=== PATIENT | male | born 1935 | race Caucasian/White ===

== ENCOUNTER 2017-05-02 09:57 | Outpatient (CLI) | payer MEDICARE, OTHER ==
--- NOTE | ~2017-05-02 | HEMODYNAMI ---
PATIENT:ROSENDO MESSINA MEDICAL RECORD: [id number] : 35 LOCATION:D.CAT ADMISSION DATE: 05/02/17 Generatedon:05/02/201712:17 Patient name: ROSENDO MESSINA Patient #: [id number] SSN: DO B: 1935 Date of study: 05/02/2017 Page: Of Hemodynamic Procedure Report Patient Data Patient Demographics Procedure consent was obtained First Name: ROSENDO Gender: Male Last Name: SIDDHARTH : 1935 Middle Initial: D Age: 82 year(s) Patient #: [id number] Race: Unknown Additional ID: [id number] Contact details [address]: [address] [place] [address] State: [place] City: [place] Zip code: [address] Past Medical History Allergies: No known allergies Admission Admission Data Admission Date: 05/02/2017 Admission Time: 9:57 Admit Source: Other Lab Results Lab Result Date: 05/02/2017 Lab Result Time: 10:50 Biochemistry Name Units Result Min Max BUN mg/dl 8 --(*---)-- 7 18 Creatinine mg/dl 1 --(--*-)-- 0.6 1.3 CBC Name Units Result Min Max Hematocrit % 41 -*(----)-- 42 54 Hemoglobin g/dl 14 --(*---)-- 13.5 17.5 Procedure Procedure Types Cath Procedure Diagnostic Procedure LHC C w/Coronaries w/Grafts Miscellaneous Procedures Moderate Sedation up to 15 minutes Procedure Description Procedure Date Procedure Date: 05/02/2017 Procedure Start Time: 12:04 Procedure End Time: 12:14 Procedure Staff Name Function Tyrone Alex MD Performing Physician Zaid Calles RN Nurse Yunior De La Paz RT Monitor Jalil Dave RT Scrub Procedure Data Cath Procedure Fluoroscopy Diagnostic fluoroscopy Total fluoroscopy Time: 2.3 time: 2.3 min min Diagnostic fluoroscopy Total fluoroscopy dose: 601 dose: 601 mGy mGy Contrast Material Contrast Material Type Amount (ml) Isovue 300 90 Entry Location Entry Primary Successful Side Size Upsize Upsize Entry Closure Succes sful Closure Location (Fr) 1 (Fr) 2 (Fr) Remarks Device Remarks Femoral Right 5 Fr Exoseal artery Estimated blood loss: 5 ml Diagnostic catheters Device Type Used For End Catheter Placement Cordis 5Fr Pigtail Procedure Catheter (MP) Cordis 5Fr JL 4.0 Procedure Catheter (MP) Cordis 5Fr 3DRC Catheter Procedure (MP) Procedure Complications No complications Procedure Medications Medication Administration Route Dosage Oxygen NC 2 l/min Lidocaine 2% added to field 20 Heparin Flush Bag added to field 2 bags (1000units/500ml NS) 0.9% NaCl I.V. 100 ml/hr Versed I.V. 1 mg Fentanyl I.V. 50 mcg Versed I.V. 1 mg Fentanyl I.V. 50 mcg Hemodynamics Rest HGB: 14 (g/dl) Heart Rate: 55 (bpm) Pressure Samples Time Site Value (mmHg) Purpose Heart Use Rate(bpm) 12:05 LV 127/13,14 Snapshot 68 Snapshots Pre Cath Intra NCS Post Cath Vital Signs Time Heart Resp SPO2 etCO2 NIBP (mmHg) Rhythm Pain Sedation Rate (ipm) (%) (mmHg) Status Level (bpm) 11:47:38 70 17 96 0 155/79(124) Paced 0 (11) 10(A) , No pain 11:51:58 68 17 96 0 153/70(125) NSR 0 (11) 10(A) , No pain 11:56:16 72 16 96 32.4 159/78(120) NSR 0 (11) 10(A) , No pain 12:00:39 69 23 97 31.7 156/72(104) NSR 0 (11) 10(A) , No pain 12:05:01 54 16 95 31.7 148/65(118) NSR 0 (11) 10(A) , No pain 12:09:19 67 18 94 0.7 144/70(97) NSR 0 (11) 9(A) , No pain 12:13:33 74 18 95 0 145/79(121) NSR 0 (11) 10(A) , No pain Medications Time Medication Route Dose Verified Delivered Reason Notes Effe ctiveness by by 11:53:49 Oxygen NC 2 Tyrone Mar used for l/min Isai Calles gravure printing machinist 11:58:04 Lidocaine 2% added 20ml Tyronedax Hansen for local to vial Isai Alex MD anesthetic field 11:58:11 Heparin Flush added 2 Tyrone Tyrone used for Bag to bags Isai Alex MD procedure (1000units/500ml field NS) 11:58:26 0.9% NaCl I.V. 100 Tyrone Vitaliyie Per ml/hr Isai Calles RN physician 12:04:02 Fentanyl I.V. 50 Tyrone Buffie for mcg Isai Calles RN sedation 12:04:56 Versed I.V. 1 mg Tyrone Buffie Per Isai Calles RN physician 12:09:03 Versed I.V. 1 mg Tyrone Vitaliyie Per Isai Calles RN physician 12:09:07 Fentanyl I.V. 50 Tyrone [place]ie [place] [facility] [place]ai Calles RN sedation Procedure Log Time Note 11:32:11 Informed consent obtained and on chart 11:32:21 Admit Source: Other 11:32:39 Diagnostic Cath status Elective 11:32:42 Mary Counts RT(R) sent for patient. Start room use. 11:32:43 Time tracking: Regular hours 11:32:47 Plan of Care:Hemodynamics will remain stable., Cardiac rhythm will remain stable., Comfort level will be maintained., Respiratory function will remain adequate., Patient/ family verbilizes understanding of procedure., Procedure tolerated without complication., Recovers from procedure without complications.. 11:33:02 H&P Date Dictated: 04/30/2017 Within 30 days and on chart., H&P Addendum completed by physician on day of procedure. (MUST COMPLETE FOR ALL OUTPATIENTS). 11:33:04 Pre-procedure instructions explained to patient. 11:33:04 Pre-op teaching completed and patient verbalized understanding. 11:33:05 Family in waiting room. 11:33:06 Patient NPO since Midnight. 11:33:13 Patient allergic to No known allergies 11:37:02 Patient received from Pre/Post Procedure Room to CCL 2 Alert and oriented. Tansferred to table in Supine position. 11:37:04 Warm blankets applied, and demetra hugger turned on for patient comfort. 11:37:05 Correct patient and procedure confirmed by team. 11:37:08 ECG and BP/O2 sat monitors applied to patient. 11:37:14 Is the patient allergic to Iodine/contrast media? No. 11:46:25 Vital chart was started 11:46:42 Rhythm: paced 11:53:49 Oxygen 2 l/min NC was administered by Zaid Calles RN; used for procedure; 11:54:36 Baseline sample Acquired. 11:54:41 Is patient on blood thinner?No 11:54:43 Patient diabetic? No. 11:54:46 Previous problem with sedation/anesthesia? No ? 11:54:47 Snore? Yes 11:54:48 Sleep apnea? No 11:54:54 Deviated septum? No 11:54:55 Opens mouth fully? Yes 11:54:55 Sticks out tongue? Yes 11:54:57 Airway obstruction? No ? 11:55:04 Dentures? Yes In Tight 11:58:04 Lidocaine 2% 20ml vial added to field was administered by Tyrone Alex MD; for local anesthetic; 11:58:11 Heparin Flush Bag (1000units/500ml NS) 2 bags added to field was administered by Tyrone Alex MD; used for procedure; 11:58:26 0.9% NaCl 100 ml/hr I.V. was administered by Zaid Calles RN; Per physician; 11:59:50 Lab Result : Hemoglobin 14 g/dl 11:59:50 Lab Result : Creatinine 1 mg/dl 11:59:50 Lab Result : BUN 8 mg/dl 11:59:50 Lab Result : Hematocrit 41 % 12:00:04 Pre procedure: right dorsailis pedis pulse 2+ Normal; easily identifiable; not easily obliterated 12:00:06 Patient pain scale 0/10 ?. 12:00:23 IV patent on arrival in left forearm with 0.9% NaCl at KVO. 12:00:27 Lab results completed and on chart. 12:00:29 Right groin area was prepped with chlora-prep and draped in sterile fashion 12:00:30 Alarms reviewed by R. N. 12:00:30 Sharps counted by scrub and verified by R.N. 12:00:33 Use device set Femoral Dx 12:00:34 Tegaderm 4 x 4 opened to sterile field. 12:00:35 Acist Manifold opened to sterile field. 12:00:36 Acist Hand Control opened to sterile field. 12:00:36 Acist Syringe opened to sterile field. 12:00:37 Bag Decanter opened to sterile field. 12:00:37 Medline Cath Pack opened to sterile field. 12:00:38 Terumo 5Fr [place] Sheath opened to sterile field. 12:00:38 St Kev 260cm J .035 wire opened to sterile field. 12:00:39 Diagnostic Infinity 5Fr Multipack catheter opened to sterile field. 12:00:49 Physician paged 12:00:53 Physician arrived 12:02:35 --------ALL STOP TIME OUT------ 12:02:36 Final Timeout: patient, procedure, and site verified with staff and physician. All members of the team are in agreement. 12:02:38 Right groin site verified by team. 12:02:47 Physical assessment completed. ASA score P 2 - A patient with mild systemic disease as per Tyrone Alex MD. 12:02:50 Sedation plan: IV Moderate Sedation Versed, Fentanyl 12:04:02 Fentanyl 50 mcg I.V. was administered by Zaid Calles RN; for sedation; 12:04:44 Procedure started. 12:04:44 Full Disclosure recording started 12:04:45 Local anesthetic to right femoral artery with Lidocaine 2% by Tyrone Alex MD.INITIAL ACCESS ONLY 12:04:47 Zero performed for pressure channel P1 12:04:56 Versed 1 mg I.V. was administered by Zaid Calles RN; Per physician; 12:05:00 A 5 Fr sheath was inserted into the Right Femoral artery 12:05:34 A Cordis 5Fr Pigtail Catheter (MP) was advanced over the wire and used for Procedure. 12:05:54 LV gram done using PANCHAL 12:05:56 Injector settings: Ml/sec: 10, Volume: 20, 12:06:05 EF : 30 % 12:06:08 Catheter exchanged over wire. 12:06:13 A Cordis 5Fr JL 4.0 Catheter (MP) was advanced over the wire and used for Procedure. 12:07:12 LCA angiography performed. 12:07:43 Catheter exchanged over wire. 12:07:47 A Cordis 5Fr 3DRC Catheter (MP) was advanced over the wire and used for Procedure. 12:08:57 RCA angiography performed. 12:09:02 RAE to LAD angiography performed. 12:09:03 Versed 1 mg I.V. was administered by Zaid Calles RN; Per physician; 12:09:07 Fentanyl 50 mcg I.V. was administered by Zaid Calles RN; for sedation; 12:09:15 Catheter exchanged over wire. 12:09:29 Medtronic Launcher 5Fr AR 2.0 guide catheter opened to sterile field. 12:11:05 SVG to RCA angiography performed. 12:11:22 Catheter removed. 12::29 Cordis 5Fr Exoseal opened to sterile field. 12:13:21 Sheath removed intact; hemostasis achieved with Exoseal to the Right Femoral artery. 12:13:23 Procedure ended.(Physican Out) 12:13:47 Fluoroscopy time 02.30 minutes. 12:13:51 Fluoroscopy dose: 601 mGy 12:13:51 Flurop Dose total: 601 12:13:54 Contrast amount:Isovue 300 90ml. 12:13:55 Sharps counted by scrub and verified by R.N. 12:13:58 Insertion/operative site no bleeding no hematoma. 12:14:00 Post-op/insertion site Right Femoral artery dressed using a 4 x 4 and Tegaderm. 12:14:04 Post right femoral artery:stable, soft, clean and dry 12:14:06 Post Procedure Pulses reassessed and unchanged 12:14:08 Post-procedure physical assessment completed. ASA score P 2 - A patient with mild systemic disease as per Tyrone Alex MD. 12:14:10 Post procedure rhythm: unchanged. 12:14:13 Estimated blood loss: 5 ml 12:14:14 Post procedure instruction explained to patient.Patient verbalizes understanding. 12:14:14 Patient needs reinforcement of post procedure teaching. 12:14:21 Procedure type changed to Cath procedure, Diagnostic procedure, LHC, LHC w/Coronaries w/Grafts, Miscellaneous Procedures, Moderate Sedation up to 15 minutes 12:14:39 Procedure and supply charges have been captured, reviewed, submitted and are correct. 12:14:42 Procedure Complication : No complications 12:14:45 Vital chart was stopped 12:14:45 See physician's report for complete and final results. 12:14:47 Report given to Pre/Post Procedure Room. 12:14:49 Patient transfered to Pre/Post Procedure Room with Stretcher. 12:14:52 Procedure ended. 12:14:52 Full Disclosure recording stopped 12:15:30 End room use (Document Last) Device Usage Item Name Manufacture Quantity Catalog Hospital Part Current Minimal Lo t# / Number Charge Number Stock Stock Serial# Code Tegaderm 4 1 [id number] 5 x 4 Acist Acist 1 89083 928299 436232 246065 5 Manifold [employer] Inc Acist Hand Acist 1 83670 315415 321040 535919 5 Control Medical [employer] Inc Acist Acist 1 78070 618361 336812 402067 20 Syringe Medical Systems Inc Bag Microtek 1 2002S 014655 04034 840038 5 Decanter Medical Inc. Medline Cardinal 1 [id number] 954140 62951 203770 5 Cath Pack Health Terumo 5Fr Terumo 1 [id number] 426602 905000 295539 [address] Kev 1 [id number] 540570 396166 582201 30 260cm J .035 wire Diagnostic Cardinal 1 [id number] 207258 93890 075335 30 Infinity Health 5Fr Multipack catheter Cordis 5Fr Cardinal 1 401259 5 Pigtail Health Catheter (MP) Cordis 5Fr Cardinal 1 497054 5 JL 4.0 Health Catheter (MP) Cordis 5Fr Cardinal 1 086912 5 3DRC Health Catheter (MP) Medtronic Medtronic 1 [id number] 411491 761953 806981 1 Launcher 5Fr AR 2.0 guide catheter Cordis 5Fr Cardinal 1 EX500 568826 306863 704259 10 [facility] Hailo Signature Audit [place] Stage Time Signature Unsigned Intra-Procedure 05/02/2017 Yunior De La Paz 12:17:53 PM RT(R) Signatures Monitor : Yunior De La Paz RT Signature : Date : Time : [facility] [address] [place] [place] [address]
[2017-05-02 10:43] VITALS: BP 129/69; BMI 25.1
[2017-05-02] MEDS ORDERED: ZOCOR20 MG PO (10:47)
[2017-05-02] MEDS ORDERED: CELEXA20 MG PO (10:47)
[2017-05-02] MEDS ORDERED: BAYER CHEWABLE81 MG PO (10:48)
[2017-05-02] MEDS ORDERED: POTASSIUM CHLO20 MEQ PO (10:48)
[2017-05-02] MEDS ORDERED: VITAMIN B-121000 MCG PO (10:48)
[2017-05-02] MEDS ORDERED: BETAPACE 80 MG80 MG PO (10:49)
[2017-05-02] MEDS ORDERED: FUROSEMIDE20 MG PO (10:49)
[2017-05-02 11:01] LABS: BASOPHILS 0.5 % (0-2); EOSINOPHILS 2.7 % (0-7); IMMATURE GRANULOCYTES 0.5 % (0-5); MCH 33.8 pg (26.0-34.0); MCHC 34.1 g/dL (31.0-37.0); MEAN PLATELET VOLUME 11.5 fL (7.4-10.4); MONOCYTES 16.6 % (2-11); NEUTROPHILS 45.7 % (40-80); RBC 4.14 10x6/uL (4.20-6.10); RDW 14.2 % (11.5-14.5)
[2017-05-02 11:35] LABS: CALC OSMOLALITY 283 mosm/kg (275-300); CALCIUM 8.4 mg/dL (8.5-10.1); CARBON DIOXIDE 26.6 mmol/L (21.0-32.0); CHLORIDE - SERUM 108 mmol/L (98-107); GLUCOSE 80 mg/dL (74-106); PLATELET COUNT 89 10x3/uL (130-400); POTASSIUM - SERUM 3.4 mmol/L (3.5-5.1); SODIUM 144 mmol/L (136-145); UREA NITROGEN 8 mg/dL (7-18); eGFR NON AFRICAN AMERICAN 76 mL/min (90-120)
[2017-05-02 12:02] LABS: PLATELET ESTIMATE DECREASED
--- NOTE | 2017-05-02 12:30 | NUR ---
1230 RECIEVED TO ROOM VIA STRETCHER FROM OYSTER OPENER WITH 5 FR EXOSEAL R/GROIN CDI NO BLEEDING NO HEMATOMA NOTED. VSS WITH REPORTS OF A CLEAN CATH NO INTERVENTION AT THIS TIME. INSTRUCTED PATIENT TO KEEP HEAD FLAT ON PILLOW WITH RLE STRAIGHT 1243 DR ALEXANDRE AT BEDSIDE WITH FAMILY. R/GROIN REMAINS CDI NO BLEEDING NO HEMATOMA NOTED.
--- NOTE | 2017-05-02 13:15 | NUR ---
2L NC, NO RESP DISTRESS NOTED. RIGHT GROIN 5F EXOSEAL CDI, NO BLEEDING NOTED. NO C/O PAIN OR NAUSEA. VSS. CALL LIGHT WITHIN REACH.
--- NOTE | 2017-05-02 13:45 | NUR ---
HOB ELEVATED 30 DEGREES. RIGHT GROIN 5F EXOSEAL CDI, NO BLEEDING NOTED.
--- NOTE | 2017-05-02 14:01 | NUR ---
LEFT PIV D/C'D WITH CATHETER INTACT, BAND AID TO SITE. UP TO BEDSIDE TO GET DRESSED.
--- NOTE | 2017-05-02 14:13 | NUR ---
DISCHARGE INSTRUCTIONS GIVEN, VERBALIZED UNDERSTANDING.
--- NOTE | 2017-05-02 14:22 | NUR ---
TAKEN OUT VIA WHEELCHAIR BY CATH LEAN MANUFACTURING LEADER. LEFT FACILITY WITH FAMILY MEMBER AND ALL PERSONAL BELONGINGS.
--- NOTE | 2017-05-10 16:56 | OP ---
PATIENT NAME: ROSENDO MESSINA MEDICAL RECORD: [id number] :35 LOCATION:D.CAT ADMISSION DATE: SURGEON: MELANIE ALEXANDRE MD DATE OF OPERATION: 05/02/2017 PROCEDURES: 1. Left heart catheterization. 2. Selective coronary angiography. 3. Left ventriculogram. 4. Vein graft angiography. 5. RAE angiography. 6. Left ventriculogram. INDICATION: Angina and coronary artery disease. PROCEDURE IN DETAIL: After informed consent was obtained and after a detailed explanation of the risks, benefits as well as alternative therapies, the patient elected to proceed with angiogram and heart catheterization. The right femoral area was prepped and draped in normal sterile fashion. Right femoral artery was cannulated via modified Seldinger technique with placement of 5-Swedish sheath. All catheters exchanged through this sheath. FINDINGS: The left ventriculogram was performed in standard 30-degree PANCHAL view, reveals global hypokinesis throughout all segments. Overall ejection fraction is 30%-35%. SELECTIVE CORONARY ANGIOGRAPHY: 1. Left main is with no significant angiographic disease. 2. Left anterior descending is totally occluded. 3. Vein graft to the LAD diagonal is widely patent. 4. RAE to the LAD is widely patent. 5. Left circumflex has mild irregularities, but no flow-limiting stenosis. 6. Right coronary is totally occluded. 7. Vein graft to the right coronary is widely patent. Distal right coronary is widely patent. OVERALL IMPRESSION: Wide patency of all grafts. No new disease elsewise. Continue medical management of the coronary artery disease and cardiac risk factors. TRANSINT:[id number] Voice Confirmation ID: [id number] DOCUMENT ID: [id number] MELANIE ALEXANDRE MD at 1656 CC: [id number] DICTATION DATE: 05/02/17 1214 AIRDROP SYSTEMS TECHNICIAN: 05/02/17 1231 DEP CLI 05/02/17 [place] [address]
[2017-08-23] MEDS ORDERED: ZOCOR20 MG PO (05:09)
[2017-08-23] MEDS ORDERED: VITAMIN D31000 UNIT PO (05:10)
== END 2017-05-02 14:22 | disposition home or self-care (01) ==
LOC: D.CATH 09:57
PROVIDERS: Internal Medicine Interventional Cardiology
DX: I25.119 Atherosclerotic heart disease of native coronary artery with unspecified angina pectoris (principal); Z95.1 Presence of aortocoronary bypass graft; Z01.812 Encounter for preprocedural laboratory examination

== ENCOUNTER 2017-07-29 16:24 | Inpatient (IN) | payer MEDICARE, OTHER ==
[~2017-07-29] VITALS: Ht 180.3 cm; Wt 84.1 kg
--- NOTE | ~2017-07-29 | EC ---
PATIENT:ROSENDO MESSINA DATE OF SERVICE: 07/29/17 SEX: M MEDICAL RECORD: [id number] DATE OF : 35 LOCATION:Za.MS [place] AGE OF PATIENT: 82 ADMISSION DATE: 07/29/17 REFERRING PHYSICIAN: INTERPRETING PHYSICIAN: MELANIE ALEX MD ECHOCARDIOGRAM REPORT ECHO CHARGES 4 ECHO COMPLETE CLINICAL DIAGNOSIS: EDEMA(LOWER EXT/ABN) HX OF CAD CABG PACEMAKER ECHOCARDIOGRAPHIC MEASUREMENTS (adult normal given) AC root (d.<3.7cm) 4.0 cm LV Septum d (<1.2 cm> 1.4 cm Valve Excursion 1.6 cm LV Septum (systole) 1.7 cm Left Atria (s.<4.0cm> 4.7 cm LVPW d(<1.2cm) 1.4 cm RV (d.<2.3cm) 3.7 cm LVPW (sytole) 1.7 cm LV diastole(<5.6CM) 5.7 cm MV E-F(>70mm/sec) cm LV systole 3.7 cm LVOT Diameter 1.3 cm MV exc.(>10mm) 2.1 cm Est.ejection fraction (50-75%) % Pericardial Effusion N DOPPLER: LVIT cm/sec A 100 cm/sec E 68.0 cm/sec LA cm/sec RVSP 39 mmHg LVOT 111 cm/sec AOP1/2T m/s Asc. Ao 253 cm/sec RVOT 72 cm/sec RA cm/sec PA 175 cm/sec AV Gradient Peak 25.53mmHg AV Mean 13.28mmHg AV Area 1.1 cm MV Gradient Peak 5.12 mmHg MV Mean 1.86 mmHg MV Area cm COMMENTS: Advertising Copywriter: 2 [employer] Dean: 1 Dr. Alex TAPE# PACS DATE OF SERVICE: 07/30/2017 FINDINGS: 1. Left ventricle chamber size is mildly dilated. Left ventricular systolic function is mildly reduced, overall ejection fraction in the 40% range. This is an improvement from previous echos that shows 30% ejection fraction. 2. Left atrium is enlarged at 4.7 cm. Right atrium and right ventricular chamber sizes are as well mildly dilated. 3. Valvular structures: Aortic valve demonstrates mild calcific aortic stenosis. Valve area calculates to 1.1 cm-squared with a gradient of 25 mm ECHOCARDIOGRAM REPORT [id number] ROSENDO MESSINA across the valve. The remaining valvular structures have normal structure and motion. 4. Doppler interrogation elsewise reveals mild mitral regurgitation, mild tricuspid regurgitation, no other valvular insufficiency or stenosis. Pulmonary systolic pressure is estimated at 39 mmHg. 5. No evidence of pericardial effusion or left ventricular thrombus. TRANSINT:[id number] Voice Confirmation ID: [id number] DOCUMENT ID: [id number] 08/02/2017 Edited to correct date of service, dm. MELANIE ALEX MD at 1025 CC: [id number] DICTATION DATE: 07/31/17 0958 SCALLOP CUTTER: 07/31/17 1431 DIS IN 08/01/17 [facility] [address] [place] [address]
--- NOTE | ~2017-07-29 | CN ---
PATIENT NAME:ROSENDO MESSINA MEDICAL RECORD: [id number] : 35 LOCATION:D.MS [id number] ADMIT DATE: 07/29/17 ACCOUNT: [id number] CONSULTING PHYSICIAN: MELANIE ALEXANDRE MD REFERRING PHYSICIAN: JOSETTE SHAW MD DATE OF CONSULTATION: 07/30/2017 DIAGNOSES: 1. Ischemic cardiomyopathy, ejection fraction 30%. 2. Congestive heart failure, chronic systolic dysfunction. 3. Abdominal distention and ascites. 4. Pleural effusions. 5. Coronary artery disease. 6. Hyperlipidemia. 7. Sick sinus syndrome. 8. Paroxysmal atrial fibrillation. HISTORY OF PRESENT ILLNESS: This is a gentleman who has a history of a cardiomyopathy, ischemic. Ejection fraction in the 30% range. Cardiac catheterization was performed in April, he had wide patency of all grafts, ejection fraction in the 30% range. He has not had any anginal symptomatology. He has had progressive abdominal distention, shortness of breath, found to have large volume ascites. He is to undergo draining of the ascites today. He as well has a large right pleural effusion, no pericardial effusion, small left pleural effusion. PHYSICAL EXAMINATION: GENERAL APPEARANCE: Well-nourished, well-developed, appears stated age. Level of distress, comfortable. PSYCHIATRIC: Mental status, alert, normal affect. Orientation, oriented to time, place and person. EYES: Lids and conjunctiva, noninjected. No discharge, no pallor. ENT: Lips, teeth, gums, normal dentition. Oropharynx, no cyanosis, no pallor. NECK: Carotid arteries, bilateral normal upstroke, no bruits, no thrills. JUGULAR VEINS: No jugular venous pressure or distention. CERVICAL LYMPH NODES: Nontender, nonenlarged. THYROID: Not enlarged. Nontender. No nodules. LUNGS: Respiratory effort, unlabored. CHEST: Normal curvature. No thoracic deformity. No chest wall tenderness. Percussion, resonant. Auscultation, clear. No wheezes, no rales, no rhonchi. CARDIOVASCULAR: Precordial exam, nondisplaced. No heaves or pericardial thrills. Rate and rhythm, regular. Heart sounds, normal S1, normal S2. No S3, no gallop, no rub. Systolic murmur, not heard. Diastolic murmur, not heard. EXTREMITIES: No cyanosis, no edema. Peripheral pulses, full and equal in all extremities, except as noted. No bruits appreciated. ABDOMEN: Soft, nondistended. Normal aorta. No bruit. Nontender. No masses. Liver, nontender, no hepatomegaly. Spleen, nontender, no splenomegaly. MUSCULOSKELETAL: No joint tenderness. No joint swelling. No erythema. NEUROLOGICAL: Normal gait, normal strength, normal tone. SKIN: Warm and dry. OVERALL IMPRESSION: The ascites and pleural effusion are secondary to the chronic systolic dysfunction from a cardiac standpoint. At this time, his blood pressure remains elevated, it has been low in the past which has precluded the initiation of cardiac meds. We will try Entresto therapy along with Coreg as CONSULT REPORT [id number] ROSENDO MESSINA his blood pressure tolerates. TRANSINT:[id number] Voice Confirmation ID: [id number] DOCUMENT ID: [id number] MELANIE ALEXANDRE MD at 1324 CC: [id number] DICTATION DATE: 07/30/1736 METAL REFINER: 07/30/17 1204 ADM IN [facility] [address] [place] [address]
[~2017-07-29 16:24] MED LIST: BAYER CHEWABLE81 MG PO; BETAPACE 80 MG80 MG PO; CELEXA20 MG PO; FUROSEMIDE20 MG PO; POTASSIUM CHLO20 MEQ PO; VITAMIN B-121000 MCG PO; ZOCOR20 MG PO
[2017-07-29 17:54] LABS: BASOPHILS 0.4 % (0-2); EOSINOPHILS 2.7 % (0-7); HEMATOCRIT 37.1 % (42.0-54.0); HEMOGLOBIN 12.3 g/dL (13.5-17.5); IMMATURE GRANULOCYTES 0.2 % (0-5); LYMPHOCYTES 23.8 % (15-50); MCH 33.1 pg (26.0-34.0); MCHC 33.2 g/dL (31.0-37.0); MCV 99.7 fL (80.0-100.0); MEAN PLATELET VOLUME 11.2 fL (7.4-10.4); MONOCYTES 15.4 % (2-11); NEUTROPHILS 57.5 % (40-80); RBC 3.72 10x6/uL (4.20-6.10); RDW 14.9 % (11.5-14.5); WBC 4.7 10x3/uL (4.8-10.8)
[2017-07-29 18:06] LABS: INR 1.18 (0.85-1.17); PROTIME 14.6 SECONDS (11.6-15.0)
[2017-07-29 18:12] LABS: PLATELET COUNT 125 10x3/uL (130-400)
[2017-07-29 18:13] LABS: ALBUMIN 2.3 g/dL (3.4-5.0); ALKALINE PHOSPHATASE 168 U/L (46-116); ALT (SGPT) 26 U/L (10-68); BILIRUBIN - TOTAL 1.12 mg/dL (0.2-1.3); CALC OSMOLALITY 278 mosm/kg (275-300); CALCIUM 8.5 mg/dL (8.5-10.1); CARBON DIOXIDE 26.3 mmol/L (21.0-32.0); CHLORIDE - SERUM 105 mmol/L (98-107); CREATININE - SERUM 1.2 mg/dL (0.6-1.3); GLUCOSE 84 mg/dL (74-106); POTASSIUM - SERUM 3.8 mmol/L (3.5-5.1); SODIUM 140 mmol/L (136-145); UREA NITROGEN 16 mg/dL (7-18); eGFR NON AFRICAN AMERICAN 61 mL/min (90-120)
[2017-07-29 18:24] LABS: CKMB 0.4 U/L (0.0-3.6); CREATINE KINASE 46 UL (21-232); PRO BNP 2080 pg/mL (0-450); TROPONIN-I 0.018 ng/mL (0.000-0.060)
[2017-07-29 20:42] LABS: APPEARANCE CLEAR (CLEAR); BACTERIA FEW /hpf (NONE SEEN); BILIRUBIN NEGATIVE (NEGATIVE); COLOR DK YELLOW (YELLOW); GLUCOSE NEGATIVE (NEGATIVE); KETONE NEGATIVE (NEGATIVE); NITRITE NEGATIVE (NEGATIVE); PROTEIN NEGATIVE (NEGATIVE); RED CELLS - URINE OCC /hpf (0-5); SPECIFIC GRAVITY 1.015 (1.005-1.020); UROBILINOGEN NORMAL (NORMAL); WHITE CELLS - URINE 0-5 /hpf (0-5)
[2017-07-29 21:17] VITALS: BP 125/42
[2017-07-30] VITALS (8 sets, daily range): BP systolic 86–132; BP diastolic 40–58; BMI 25.8
[2017-07-30 05:34] LABS: APTT 37.1 SECONDS (22.8-39.4); INR 1.28 (0.85-1.17); PROTIME 15.5 SECONDS (11.6-15.0)
[2017-07-30 05:40] LABS: BASOPHILS 0.2 % (0-2); EOSINOPHILS 4.7 % (0-7); HEMATOCRIT 33.1 % (42.0-54.0); HEMOGLOBIN 10.9 g/dL (13.5-17.5); LYMPHOCYTES 34.2 % (15-50); MCH 32.6 pg (26.0-34.0); MCHC 32.9 g/dL (31.0-37.0); MCV 99.1 fL (80.0-100.0); MEAN PLATELET VOLUME 11.2 fL (7.4-10.4); MONOCYTES 16.3 % (2-11); NEUTROPHILS 44.6 % (40-80); PLATELET COUNT 111 10x3/uL (130-400); RBC 3.34 10x6/uL (4.20-6.10); RDW 14.9 % (11.5-14.5); WBC 4.3 10x3/uL (4.8-10.8)
[2017-07-30 05:48] LABS: % SATURATION 40 % (15-55); IRON 57 ug/dl (35-150); TOTAL IRON BIND CAPACITY 140 ug/dl (260-445); UNSAT IRON BIND CAPACITY 83 ug/dl (150-375)
[2017-07-30 05:52] LABS: ANION GAP 12.1 mmol/L (8-16); BILIRUBIN - TOTAL 0.93 mg/dL (0.2-1.3); CALCIUM 8.1 mg/dL (8.5-10.1); CARBON DIOXIDE 25.6 mmol/L (21.0-32.0); CHOL - HDL RATIO 4.6 ratio (2.3-4.9); CREATININE - SERUM 1.2 mg/dL (0.6-1.3); LDL-HDL RATIO 3.3 ratio (1.5-3.5); POTASSIUM - SERUM 3.7 mmol/L (3.5-5.1); PRE-ALBUMIN 7.8 mg/dL (18.0-35.7); PROTEIN - SERUM 6.1 g/dL (6.4-8.2)
[2017-07-31] VITALS (11 sets, daily range): BP systolic 85–123; BP diastolic 32–54; Ht 180.3 cm; Wt 84.1 kg
[2017-07-31 05:14] LABS: ALPHA FETOPROTEIN -(TUMOR MRK) 3.9 ng/mL (0.0-8.3); CEA 1.3 ng/mL (0.0-4.7)
[2017-07-31 08:05] LABS: HEMATOCRIT 33.2 % (42.0-54.0); HEMOGLOBIN 10.9 g/dL (13.5-17.5); MCH 32.6 pg (26.0-34.0); MCHC 32.8 g/dL (31.0-37.0); MCV 99.4 fL (80.0-100.0); MEAN PLATELET VOLUME 10.6 fL (7.4-10.4); RBC 3.34 10x6/uL (4.20-6.10); RDW 15.1 % (11.5-14.5)
[2017-07-31 08:08] LABS: PLATELET COUNT 84 10x3/uL (130-400); WBC 2.8 10x3/uL (4.8-10.8)
[2017-07-31 08:16] LABS: ANION GAP 12.7 mmol/L (8-16); CALCIUM 8.1 mg/dL (8.5-10.1); CARBON DIOXIDE 25.8 mmol/L (21.0-32.0); CREATININE - SERUM 1.3 mg/dL (0.6-1.3); POTASSIUM - SERUM 3.5 mmol/L (3.5-5.1)
[2017-07-31 08:36] LABS: INR 1.23 (0.85-1.17); PROTIME 15.1 SECONDS (11.6-15.0)
[2017-07-31 08:37] LABS: APTT 39.3 SECONDS (22.8-39.4)
[2017-07-31 09:25] LABS: ANISOCYTOSIS OCC; EOSINOPHILS 2 % (0-7); LYMPHOCYTES 20 % (15-50); MONOCYTES 13 % (2-11); NEUTROPHILS 64 % (40-80); PLATELET ESTIMATE DECREASED; ROULEAUX OCC
[2017-07-31 10:15] LABS: ANA REFLEX - DIRECT Negative (Negative)
[2017-07-31 12:13] LABS: HEPATITIS C ANTIBODY 0.2 (0.0-0.9)
[2017-07-31 15:41] LABS: PROTEIN - BODY FLUID 2.6 G/DL
[2017-07-31 17:11] LABS: EBV - EARLY ANTIGEN AB IGG 13.3 U/mL (0.0-8.9); EBV VIRAL CAPSID AB IGM <36.0 U/mL (0.0-35.9)
[2017-07-31 20:03] LABS: NEUT - BF 3 %
[2017-07-31 20:04] LABS: MACROPHAGES BF 49 %; MESOTHELIALS BF 24 %
[2017-08-01 01:32] VITALS: BP 113/33
[2017-08-01 05:32] LABS: BASOPHILS 0 % (0-2); EOSINOPHILS 2.3 % (0-7); HEMATOCRIT 33.7 % (42.0-54.0); HEMOGLOBIN 11.3 g/dL (13.5-17.5); IMMATURE GRANULOCYTES 0.3 % (0-5); LYMPHOCYTES 22.6 % (15-50); MCH 33.1 pg (26.0-34.0); MCHC 33.5 g/dL (31.0-37.0); MCV 98.8 fL (80.0-100.0); MEAN PLATELET VOLUME 11.5 fL (7.4-10.4); MONOCYTES 19.4 % (2-11); NEUTROPHILS 55.4 % (40-80); PLATELET COUNT 75 10x3/uL (130-400); RBC 3.41 10x6/uL (4.20-6.10); RDW 15.1 % (11.5-14.5); WBC 3.1 10x3/uL (4.8-10.8)
[2017-08-01 06:06] LABS: ANION GAP 11.5 mmol/L (8-16); CALCIUM 7.9 mg/dL (8.5-10.1); CARBON DIOXIDE 26.9 mmol/L (21.0-32.0); CREATININE - SERUM 1.3 mg/dL (0.6-1.3); POTASSIUM - SERUM 3.4 mmol/L (3.5-5.1)
[2017-08-01 06:33] VITALS: BP 107/47
[2017-08-01 09:20] VITALS: BP 105/42
[2017-08-01 12:20] VITALS: BP 98/45
[2017-08-01] MEDS ORDERED: ALDACTONE25 MG PO (13:43)
[2017-08-01] MEDS ORDERED: LASIX20 MG PO (13:44)
[2017-08-01 14:17] LABS: MITOCHONDRIAL ANTIBODY 4.1 Units (0.0-20.0); SMOOTH MUSCLE ABS (ACTIN) 21 Units (0-19)
[2017-08-01 20:08] LABS: ACID FAST SMEAR Negative (()); AFB SPECIMEN PROCESSING Concentration (()); AFB SPECIMEN PROCESSING Not Indicated (())
[2017-08-02 12:16] LABS: FUNGUS STAIN Final report (())
[2017-08-23] MEDS ORDERED: ZOCOR20 MG PO (05:09)
[2017-08-23] MEDS ORDERED: VITAMIN D31000 UNIT PO (05:10)
[2017-08-28 08:19] LABS: FUNGUS MYCOLOGY CULTURE Final report (())
== END 2017-08-01 16:03 | disposition home or self-care (01) | DRG 432 ==
LOC: D.SDCHOLD 16:24 → D.MS 16:24
PROVIDERS: Emergency Medicine; Internal Medicine Gastroenterology; Internal Medicine Nephrology; Radiology Diagnostic Radiology
PROC: 0W993ZZ Drainage of Right Pleural Cavity, Percutaneous Approach (ICD-10-PCS; principal; 2017-07-31 11:00)
PROC: 0W9G3ZZ Drainage of Peritoneal Cavity, Percutaneous Approach (ICD-10-PCS; 2017-07-31 11:00)
DX: K74.60 Unspecified cirrhosis of liver (principal); I50.23 Acute on chronic systolic (congestive) heart failure; R18.8 Other ascites; J90 Pleural effusion, not elsewhere classified; K76.6 Portal hypertension; I25.10 Atherosclerotic heart disease of native coronary artery without angina pectoris; E78.5 Hyperlipidemia, unspecified; I48.0 Paroxysmal atrial fibrillation; N20.0 Calculus of kidney; K80.80 Other cholelithiasis without obstruction; Z95.0 Presence of cardiac pacemaker

== ENCOUNTER 2017-08-22 18:20 | Inpatient (IN) | payer MEDICARE, OTHER | END 2017-08-31 00:36 | disposition home health service (06) | DRG 432 | LOC: D.M2 18:20 | PROC: 0W993ZZ Drainage of Right Pleural Cavity, Percutaneous Approach (ICD-10-PCS; principal; 2017-08-23) | PROC: 0W993ZZ Drainage of Right Pleural Cavity, Percutaneous Approach (ICD-10-PCS; 2017-08-30) | DX: K74.60 Unspecified cirrhosis of liver (principal); I50.23 Acute on chronic systolic (congestive) heart failure; J96.21 Acute and chronic respiratory failure with hypoxia; J91.8 Pleural effusion in other conditions classified elsewhere; N17.9 Acute kidney failure, unspecified; J94.8 Other specified pleural conditions; J98.11 Atelectasis; I25.110 Atherosclerotic heart disease of native coronary artery with unstable angina pectoris; D61.818 Other pancytopenia; R18.8 Other ascites; Z91.14 Patient's other noncompliance with medication regimen; I11.0 Hypertensive heart disease with heart failure; I25.5 Ischemic cardiomyopathy; E78.5 Hyperlipidemia, unspecified; E55.9 Vitamin D deficiency, unspecified ==

== ENCOUNTER → 2018-03-31 15:06 | Outpatient (CLI) | payer MEDICARE, OTHER ==
[2017-08-28 18:37] VITALS: BMI 23.0
[~2018-03-31 15:06] MED LIST changes: +ALDACTONE25 MG PO; +K-DUR20 MEQ PO; +LASIX20 MG PO; +VITAMIN D31000 UNIT PO
== END | disposition home or self-care (01) ==
LOC: D.RAD 15:06
DX: R06.00 Dyspnea, unspecified (principal)

== ENCOUNTER 2018-04-08 06:33 | Outpatient (CLI) | payer MEDICARE, OTHER ==
[~2018-04-08] VITALS: Ht 180.3 cm; Wt 73.2 kg
[2018-04-08 06:57] LABS: BASOPHILS 0.2 % (0-2); EOSINOPHILS 2.4 % (0-7); HEMATOCRIT 37.7 % (42.0-54.0); HEMOGLOBIN 12.7 g/dL (13.5-17.5); IMMATURE GRANULOCYTES 0.2 % (0-5); LYMPHOCYTES 26.6 % (15-50); MCH 33.8 pg (26.0-34.0); MCHC 33.7 g/dL (31.0-37.0); MCV 100.3 fL (80.0-100.0); MEAN PLATELET VOLUME 10.5 fL (7.4-10.4); MONOCYTES 11.1 % (2-11); NEUTROPHILS 59.5 % (40-80); PLATELET COUNT 84 10x3/uL (130-400); RBC 3.76 10x6/uL (4.20-6.10); RDW 14.7 % (11.5-14.5); WBC 4.5 10x3/uL (4.8-10.8)
[2018-04-08 07:12] LABS: ANION GAP 13.9 mmol/L (8-16); CALCIUM 8.8 mg/dL (8.5-10.1); CARBON DIOXIDE 25.8 mmol/L (21.0-32.0); CREATININE - SERUM 1.3 mg/dL (0.6-1.3); POTASSIUM - SERUM 3.7 mmol/L (3.5-5.1)
[2018-04-08] MEDS ORDERED: PROBIOTIC250 MG PO (07:22)
[2018-04-08 07:23] LABS: APTT 28.9 SECONDS (22.8-39.4); INR 1.16 (0.85-1.17); PROTIME 14.3 SECONDS (11.6-15.0)
[2018-04-08 07:24] LABS: PLATELET ESTIMATE DECREASED
[2018-04-08 07:32] VITALS: BP 120/56; Ht 180.3 cm; Wt 73.2 kg
[2018-04-08 12:17] LABS: PROTEIN - BODY FLUID 1.8 G/DL
[2018-04-08 13:01] LABS: MACROPHAGES BF 70 %; MESOTHELIALS BF 8 %; NEUT - BF 1 %
[2018-04-10 16:14] LABS: ACID FAST SMEAR Negative (()); AFB SPECIMEN PROCESSING Concentration (())
[2018-04-11 12:17] LABS: FUNGUS STAIN Final report (())
[2018-04-16 11:16] LABS: FUNGUS MYCOLOGY CULTURE Preliminary report (())
== END 2018-04-08 12:53 | disposition home or self-care (01) ==
LOC: D.SP 06:33 → D.CT 09:00 → D.SP 12:53
PROVIDERS: Internal Medicine Pulmonary Disease; Specialist
DX: J90 Pleural effusion, not elsewhere classified (principal); Z01.812 Encounter for preprocedural laboratory examination

== ENCOUNTER 2018-04-11 10:48 | Inpatient (IN) | payer MEDICARE, OTHER ==
[~2018-04-11] VITALS: Ht 180.3 cm; Wt 73.1 kg
--- NOTE | ~2018-04-11 | HEMODYNAMI ---
PATIENT:ROSENDO MESSINA MEDICAL RECORD: [id number] : 35 LOCATION:[place] [address] ADMISSION DATE: 04/11/18 Generatedon:04/15/201816:21 Patient name: ROSENDO MESSINA Patient #: [id number] SSN: DO B: 1935 Date of study: 04/15/2018 Page: Of Hemodynamic Procedure Report Patient Data Patient Demographics Procedure consent was obtained First Name: ROSENDO Gender: Male Last Name: SIDDHARTH : 1935 Middle Initial: D Age: 83 year(s) Patient #: [id number] Race: Unknown Additional ID: [id number] Contact details Address: [address] [place] [address] State: [place] City: [place] Zip code: [facility] Past Medical History Allergies Allergen Reaction Date Comments Reported Morphine 04/15/2018 Admission Admission Data Admission Date: 04/11/2018 Admission Time: 17:50 Room #: [facility] Height (in.): 71 BSA: 1.91 (m2) Height (cm.): 180.34 BMI: 22.18 (kg/m2) Weight (lbs.): 159 Weight (kg.): 72.12 Procedure Procedure Types Cath Procedure Peripheral Cath Diagnostic Procedure Manager Aerospace Peripheral Procedures Liver TIPSS Procedure Description Procedure Date Procedure Date: 04/15/2018 Procedure Start Time: 14:10 Procedure Staff Name Function Bronson Centeno MD Performing Physician Nay Shook RT Plastic Surgery Nurse Shazia William RN Nurse Radha Cloud RN Nurse Silas Coley RT Scrub Procedure Data Cath Procedure Fluoroscopy Diagnostic fluoroscopy Total fluoroscopy Time: time: 38.9 min 38.9 min Diagnostic fluoroscopy Total fluoroscopy dose: dose: 1777 mGy 1777 mGy Contrast Material Contrast Material Type Amount (ml) Isovue 300 75 Diagnostic catheters Device Type Used For End Catheter Placement DIAGNOSTIC MPA-2 5Fr catheter ([id number]) Merit UHF Pigtail VESSEL SIZING 5Fr 65CM catheter ([id number]) Procedure Medications Medication Administration Route Dosage Lidocaine 1% added to field 20 Heparin Flush Bag added to field 3 bags (1000units/500ml NS) Ancef (1Gm/50ml NS) I.V.P.B 1 g Hemodynamics Rest BSA: 1.91 (m2) O2 Consumption: Estimated: 213.1 (ml/min) O2 Consumption indexed: Estimated:111.57 (ml/min/m) Heart Rate: 64 (bpm) Pressure Samples Time Site Value (mmHg) Purpose Heart Use Rate(bpm) 14:19 SVC 2/2(1) Snapshot 64 15:42 Portal 6/-8(3) Snapshot 60 16:01 Portal (5) Snapshot 60 16:03 RA 4/4(2) Snapshot 52 Snapshots Pre Cath Intra NCS Post Cath Medications Time Medication Route Dose Verified Delivered Reason Notes Effec tiveness by by 14:14:01 Lidocaine 1% added 20ml Bronson Dobson Per to vial Taryn Centeno protocol field MD PERALTA 14:14:40 Heparin Flush added 3 Bronson Dobson Per Bag to bags Taryn Centeno protocol (1000units/500ml field MD PERALTA NS) 14:27:15 Ancef (1Gm/50ml I.V.P.B 1 g Bronson Mccray Per NS) Taryn William RN protocol Procedure Log Time Note 12:07:22 Patient Height : 71 inches 12:07:24 Patient Weight : 159 lbs 12:45:29 Use device set IR Diagnostic 13:14:44 Time tracking: Regular hours (M-F 7:00 - 5:00) 13:15:03 Plan of Care:Hemodynamics will remain stable., Cardiac rhythm will remain stable., Comfort level will be maintained., Respiratory function will remain adequate., Patient/ family verbilizes understanding of procedure., Procedure tolerated without complication., Recovers from procedure without complications.. 13:15:12 Patient received from Med/Surg to IR Alert and oriented. Tansferred to table in Supine position. 13:15:15 Correct patient and procedure confirmed by team. 13:15:18 Signed procedure consent form obtained from patient. 13:15:20 Warm blankets applied, and demetra hugger turned on for patient comfort. 13:15:29 H&P Date Dictated: 04/15/2018 Within 30 days and on chart.. 13:15:31 Pre-procedure instructions explained to patient. 13:15:32 Pre-op teaching completed and patient verbalized understanding. 13:15:36 Family in waiting room. 13:15:40 Patient NPO since Midnight. 13:16:13 Patient allergic to Morphine 13:16:17 Is the patient allergic to Iodine/contrast media? No. 13:16:22 Is patient on blood thinner?No 13:16:27 - 13:16:28 ----Pre-sedation anethsthesia assessment.----see anesthesia notes for monitoring of patient during procedure. 13:17:22 - 13:17:23 - 13:17:33 Tegaderm 4 x 4 (1626W) opened to sterile field. 13:17:35 Sterile Angiographic Pack opened to sterile field. 13:17:36 Bag Decanter () opened to sterile field. 13:17:37 ACIST Manifold (59471) opened to sterile field. 13:17:38 ACIST Hand Control (95446) opened to sterile field. 13:17:41 ACIST Syringe (36492) opened to sterile field. 13:17:42 Micropuncture VSI 4FR kit opened to sterile field. 13:17:43 SHEATH 5FR Hitchcock (CAN904) opened to sterile field. 13:17:44 TUBING Contrast Injection High Pressure (SGQ441S) opened to sterile field. 13:17:46 TUBING Contrast Injection High Pressure (WDK442Y) opened to sterile field. 13:17:47 KIT, TRANSJUGULAR LIVER ACCESS R opened to sterile field. 13:17:51 A DIAGNOSTIC MPA-2 5Fr catheter (634324W) was advanced over the wire an d used for . 13:17:54 A [facility] Pigtail VESSEL SIZING 5Fr 65CM catheter ([id number]) was advanced over the wire and used for . 13:17:56 GLIDE WIRE ANGLE 180cm (SD6658) opened to sterile field. 13:17:57 CASTRO 180cm wire (Q20702) opened to sterile field. 13:17:59 INFLATOR BasixTOUCH (QE2498) opened to sterile field. 13:18:28 - 13:21:16 ECG and BP/O2 sat monitors applied to patient. 14:05:17 Physician arrived 14:05:27 --------ALL STOP TIME OUT------ 14:05:28 Final Timeout: patient, procedure, and site verified with staff and physician. All members of the team are in agreement. 14:10:03 Procedure started. 14:10:03 Full Disclosure recording started 14:10:12 Local anesthetic to right IJ vein with Lidocaine 1% by Bronson Centeno MD.INITIAL ACCESS ONLY 14:10:14 Venous access obtained using ultrasound guidance. 14:10:23 STOPCOCK 3-Way Large Bore (A87529) opened to sterile field. 14:12:09 BENTSON 145cm wire (S67264) opened to sterile field. 14:14:01 Lidocaine 1% 20ml vial added to field was administered by Bronson davis MD; Per protocol; 14:14:40 Heparin Flush Bag (1000units/500ml NS) 3 bags added to field was administered by Bronson Centeno MD; Per protocol; 14:18:28 GLIDE CATHETER 5FR ANGLED 65cm (CG507) opened to sterile field. 14:18:40 TORQUE DEVICE PLASTIC .038 ( TD01) opened to sterile field. 14:18:57 Zero performed for pressure channel P1 14:27:15 Ancef (1Gm/50ml NS) 1 g I.V.P.B was administered by Shazia William RN ; Per protocol; 14:28:19 AMPLATZ Short Taper 260cm wire ([id number]) opened to sterile field. 15:31:39 GLIDE CATHETER 5FR COBRA 65cm (CG502) opened to sterile field. 15:38:08 FAMILY UPDATE 15:41:33 Zero performed for pressure channel P1 15:46:23 Inflate balloon Inflation number: 1 A Evercross 6 x 6 x 135 Balloon ([id number]) was prepped and advanced across the Undefined1, then inflated to 0 KERRY for 0:00 (min:sec). 15:54:54 VIATORR 10x8 stent ([id number]) was deployed across Undefined1 . 15:58:10 Inflate balloon Inflation number: 2 A Evercross 8 x 6 x 135 Balloon ([id number]) was prepped and advanced across the Undefined1, then inflated to 0 KERRY for 0:00 (min:sec). 16:00:47 Zero performed for pressure channel P1 16:03:56 Procedure ended.(Physican Out) 16:04:17 Fluoroscopy time 38.90 minutes. 16:04:23 Fluoroscopy dose: 1777 mGy 16:04:23 Flurop Dose total: 1777 16:04:28 Contrast amount:Isovue 300 75ml. 16:04:31 Procedure and supply charges have been captured, reviewed, submitted an d are correct. 16:20:56 Report given to PCU. Intervention Summary Intervention Notes Time ActionType Lesion and Equipment Used Action# Pressure Duration Attributes 15:46:23 Inflate Undefined1 Evercross 6 x 6 1 0 00:00 balloon x 135 Balloon ([id number]) 15:54:54 Deploy self Undefined1 VIATORR 10x8 1 expanding stent stent ([id number]) 15:58:10 Inflate Undefined1 Evercross 8 x 6 2 0 00:00 balloon x 135 Balloon ([id number]) Device Usage Item Name Manufacture Quantity Catalog Number Hospital Part Current M inimal Lot# / Charge Number Stock Stock Serial# Code Tegaderm 4 x 4 3M 1 1626W [id number] 363217 698893 5 (1626W) Sterile Cardinal 1 [id number] 618315 095435 5 Angiographic Health Pack Bag Decanter Microtek 1 728793 29524 637185 5 () Medical Inc. ACIST Manifold Acist 1 18947 576507 908651 579026 5 (72428) Medical Systems Inc ACIST Hand Acist 1 90308 828117 086127 791073 5 Control (35629) Medical Systems Inc ACIST Syringe Acist 1 17862 155323 484717 560919 2 0 (56099) Medical Systems Inc Micropuncture VSI VASCULAR 1 7266V 459402 051082 5 VSI 4FR kit SOLUTIONS SHEATH 5FR Terumo 1 KCO508 464653 668479 292337 4 0 Hitchcock (UIC884) TUBING Contrast Merit 2 MLL951D 704430 570288 344293 5 Injection High Medical Pressure (BNI447L) KIT, Promodity 1 P34180 835396 421278 5 1059938 TRANSJUGULAR LIVER ACCESS R DIAGNOSTIC Cardinal 1 [id number] 913205 577517 819044 5 MPA-2 5Fr Health catheter (104974W) Merit UHF Merit 1 7602-20M65 326037 355818 5 Pigtail VESSEL Medical SIZING 5Fr 65CM catheter (546374R34) GLIDE WIRE Terumo 1 CR4957 353591 861302 805405 5 ANGLE 180cm (EF5633) CASTRO 180cm Cook Medical 1 Z78260 089581 292080 5 wire (D20370) INFLATOR Merit 1 SO9531 473942 425481 096235 5 BasixTOUCH Medical (YF9296) STOPCOCK 3-Way Cook Medical 1 O69336 992821 9108 101748 5 5875086 Large Bore (K32376) BENTSON 145cm Cook Medical 1 A64671 257524 324134 5 wire (F00675) GLIDE CATHETER Terumo 1 CG507 595041 983711 5 5FR ANGLED 65cm (CG507) TORQUE DEVICE Hartwell 1 TD01 556513 258537 907560 5 PLASTIC .038 ( Scientific TD01) AMPLATZ Short Hartwell 1 [id number] 596030 136706 484364 5 Taper 260cm Scientific wire ([id number]) GLIDE CATHETER Terumo 1 CG502 066770 204574 5 5FR COBRA 65cm (CG502) Evercross 6 x 6 Medtronic 1 [id number] 120169 917285 5 M419375 x 135 Balloon ([id number]) VIATORR 10x8 W.L. Trona 1 [id number] 397175 478180 179471 5 [id number] stent ([id number]) Evercross 8 x 6 Medtronic 1 [id number] 285399 896221 021305 5 [id number] x 135 Balloon ([id number]) Signature Audit [place] Stage Time Signature Unsigned Intra-Procedure 04/15/2018 Nay Shook 4:21:19 PM RT(R) [place] [address] [place] [address]
--- NOTE | ~2018-04-11 | EC ---
PATIENT:ROSENDO MESSINA DATE OF SERVICE: 04/11/18 SEX: M MEDICAL RECORD: [id number] DATE OF : 35 LOCATION:[place] [address] AGE OF PATIENT: 83 ADMISSION DATE: 04/11/18 REFERRING PHYSICIAN: INTERPRETING PHYSICIAN: EVA BLACK MD ECHOCARDIOGRAM REPORT ECHO CHARGES 4 ECHO COMPLETE Date: 04/13/18 CLINICAL DIAGNOSIS: SOB ECHOCARDIOGRAPHIC MEASUREMENTS (adult normal given) AC root (d.<3.7cm) 3.1 cm LV Septum d (<1.2 cm> 1.0 cm Valve Excursion 0.8 cm LV Septum (systole) 1.4 cm Left Atria (s.<4.0cm> 3.6 cm LVPW d(<1.2cm) 0.9 cm RV (d.<2.3cm) 2.4 cm LVPW (sytole) 0.9 cm LV diastole(<5.6CM) 5.7 cm MV E-F(>70mm/sec) cm LV systole 4.9 cm LVOT Diameter 1.7 cm MV exc.(>10mm) cm Est.ejection fraction (50-75%) % DOPPLER: LVIT cm/sec A 96 cm/sec E 54 cm/sec LA cm/sec RVSP 31.5 mmHg LVOT 82 cm/sec AOP1/2T m/s Asc. Ao 248 cm/sec RVOT 63 cm/sec RA cm/sec PA 142 cm/sec AV Gradient Peak 24.7 mmHg AV Mean 16.6 mmHg AV Area 0.7 cm MV Gradient Peak 3.9 mmHg MV Mean 1.9 mmHg MV Area cm COMMENTS: Lead Refiner: Sonny BAXTER Farrowing Manager: 4 Dr. Black TAPE# PACS Pericardial Effusion N DATE OF SERVICE: PROCEDURE: Transthoracic echocardiogram. FINDINGS: 1. Left ventricle appears to have mild dilatation. There is left ventricular hypertrophy. Inflow characteristics are consistent with diastolic dysfunction. The ejection fraction is low normal 50% to 55%. 2. Left atrium overall is normal. 3. Mitral valve is overall normal. ECHOCARDIOGRAM REPORT [id number] ROSENDO MESSINA 4. The aortic valve has evidence of thickening and at least mild to moderate aortic stenosis, but the peak gradient that we have puts it more in the mild range at 27 mmHg. 5. The mitral valve appears to be normal. 6. The tricuspid valve has trace tricuspid regurgitation. 7. The right ventricle and right atrium are normal. 8. The pulmonic valve is normal. CONCLUSIONS: The patient has evidence of at least mild aortic stenosis with preserved left ventricular function and left ventricular hypertrophy. TRANSINT:[id number] Voice Confirmation ID: [id number] DOCUMENT ID: [id number] EVA BLACK MD at 1348 CC: [id number] DICTATION DATE: 04/14/18 0754 POOL LIFEGUARD: 04/14/18 1138 ADM IN [facility] [address] [place] [address]
[~2018-04-11 10:48] MED LIST changes: +PROBIOTIC250 MG PO
[2018-04-11 11:31] LABS: BASOPHILS 0.3 % (0-2); EOSINOPHILS 4.1 % (0-7); HEMATOCRIT 38.3 % (42.0-54.0); HEMOGLOBIN 13.1 g/dL (13.5-17.5); IMMATURE GRANULOCYTES 0.3 % (0-5); LYMPHOCYTES 25.6 % (15-50); MCH 34.1 pg (26.0-34.0); MCHC 34.2 g/dL (31.0-37.0); MCV 99.7 fL (80.0-100.0); MEAN PLATELET VOLUME 10.6 fL (7.4-10.4); MONOCYTES 16.2 % (2-11); NEUTROPHILS 53.5 % (40-80); PLATELET COUNT 85 10x3/uL (130-400); RBC 3.84 10x6/uL (4.20-6.10); RDW 14.4 % (11.5-14.5); WBC 3.9 10x3/uL (4.8-10.8)
[2018-04-11 11:43] LABS: APTT 30.9 SECONDS (22.8-39.4); INR 1.14 (0.85-1.17); PROTIME 14.2 SECONDS (11.6-15.0)
[2018-04-11 11:48] LABS: ANION GAP 11.3 mmol/L (8-16); CALCIUM 8.5 mg/dL (8.5-10.1); CARBON DIOXIDE 26.2 mmol/L (21.0-32.0); CREATININE - SERUM 1.2 mg/dL (0.6-1.3); POTASSIUM - SERUM 3.5 mmol/L (3.5-5.1)
[2018-04-11 12:25] VITALS: BMI 22.2
[2018-04-11 20:00] VITALS: BP 122/56
[2018-04-12] VITALS: BP 123/43
[2018-04-12 01:24] VITALS: BP 122/56; BMI 22.2
[2018-04-12 04:00] VITALS: BP 112/41
[2018-04-12 09:11] VITALS: BP 116/48
[2018-04-12 20:30] VITALS: BP 101/44
[2018-04-13 00:30] VITALS: BP 92/41
[2018-04-13 04:00] VITALS: BP 116/57
[2018-04-13 05:42] LABS: BASOPHILS 0.2 % (0-2); EOSINOPHILS 3.9 % (0-7); HEMATOCRIT 36.7 % (42.0-54.0); HEMOGLOBIN 12.4 g/dL (13.5-17.5); IMMATURE GRANULOCYTES 0.2 % (0-5); LYMPHOCYTES 19.7 % (15-50); MCH 33.8 pg (26.0-34.0); MCHC 33.8 g/dL (31.0-37.0); MEAN PLATELET VOLUME 10.7 fL (7.4-10.4); MONOCYTES 17.9 % (2-11); NEUTROPHILS 58.1 % (40-80); PLATELET COUNT 70 10x3/uL (130-400); RBC 3.67 10x6/uL (4.20-6.10); RDW 14.3 % (11.5-14.5); WBC 4.6 10x3/uL (4.8-10.8)
[2018-04-13 05:57] LABS: INR 1.1 (0.85-1.17); PROTIME 13.8 SECONDS (11.6-15.0)
[2018-04-13 06:26] LABS: ANION GAP 9.3 mmol/L (8-16); BILIRUBIN - DIRECT 0.58 mg/dL (0.00-0.30); BILIRUBIN - INDIRECT 0.58 mg/dL (0.00-1.00); BILIRUBIN - TOTAL 1.16 mg/dL (0.2-1.3); CALCIUM 7.8 mg/dL (8.5-10.1); CARBON DIOXIDE 29.5 mmol/L (21.0-32.0); CREATININE - SERUM 1.4 mg/dL (0.6-1.3); MAGNESIUM - SERUM 1.8 mg/dL (1.8-2.4); PHOSPHOROUS 4.1 mg/dL (2.5-4.9); POTASSIUM - SERUM 3.8 mmol/L (3.5-5.1); PROTEIN - SERUM 5.6 g/dL (6.4-8.2)
[2018-04-13 09:07] VITALS: BP 120/39
[2018-04-13 15:26] VITALS: BP 105/36
[2018-04-13 19:55] VITALS: BP 118/47
[2018-04-14 05:50] LABS: CALCIUM 8.2 mg/dL (8.5-10.1); CARBON DIOXIDE 29.9 mmol/L (21.0-32.0); CREATININE - SERUM 1.2 mg/dL (0.6-1.3); POTASSIUM - SERUM 3.9 mmol/L (3.5-5.1)
[2018-04-14 05:58] VITALS: BP 102/22
[2018-04-14 08:17] VITALS: BP 94/40
[2018-04-14 13:39] VITALS: BP 92/40
[2018-04-14 16:41] VITALS: BP 88/34
[2018-04-14 20:00] VITALS: BP 110/42
[2018-04-15] VITALS (13 sets, daily range): BP systolic 101–125; BP diastolic 30–74
[2018-04-15 05:59] LABS: INR 1.16 (0.85-1.17); PROTIME 14.4 SECONDS (11.6-15.0)
[2018-04-15 06:09] LABS: ANION GAP 10.4 mmol/L (8-16); CALCIUM 8.2 mg/dL (8.5-10.1); CREATININE - SERUM 1.4 mg/dL (0.6-1.3); POTASSIUM - SERUM 4.4 mmol/L (3.5-5.1)
[2018-04-15 19:28] LABS: BASOPHILS 0.2 % (0-2); EOSINOPHILS 2.8 % (0-7); HEMATOCRIT 36.6 % (42.0-54.0); HEMOGLOBIN 12.2 g/dL (13.5-17.5); IMMATURE GRANULOCYTES 0.2 % (0-5); LYMPHOCYTES 7.4 % (15-50); MCH 34.2 pg (26.0-34.0); MCHC 33.3 g/dL (31.0-37.0); MCV 102.5 fL (80.0-100.0); MEAN PLATELET VOLUME 10.9 fL (7.4-10.4); NEUTROPHILS 75.4 % (40-80); RBC 3.57 10x6/uL (4.20-6.10); RDW 14.6 % (11.5-14.5); WBC 6.5 10x3/uL (4.8-10.8)
[2018-04-15 19:43] LABS: PLATELET COUNT 95 10x3/uL (130-400)
[2018-04-16] VITALS (25 sets, daily range): BP systolic 97–113; BP diastolic 31–44; Ht 180.3 cm; Wt 73.1 kg
[2018-04-16 05:06] LABS: BASOPHILS 0.3 % (0-2); EOSINOPHILS 5.7 % (0-7); HEMATOCRIT 33.6 % (42.0-54.0); HEMOGLOBIN 10.8 g/dL (13.5-17.5); IMMATURE GRANULOCYTES 0.2 % (0-5); LYMPHOCYTES 10.6 % (15-50); MCH 32.7 pg (26.0-34.0); MCHC 32.1 g/dL (31.0-37.0); MCV 101.8 fL (80.0-100.0); MEAN PLATELET VOLUME 10.8 fL (7.4-10.4); MONOCYTES 12.5 % (2-11); NEUTROPHILS 70.7 % (40-80); PLATELET COUNT 88 10x3/uL (130-400); RDW 14.8 % (11.5-14.5); WBC 6.2 10x3/uL (4.8-10.8)
[2018-04-16 05:31] LABS: ALBUMIN 2.9 g/dL (3.4-5.0); ANION GAP 10.3 mmol/L (8-16); BILIRUBIN - DIRECT 0.65 mg/dL (0.00-0.30); BILIRUBIN - INDIRECT 1.65 mg/dL (0.00-1.00); BILIRUBIN - TOTAL 2.3 mg/dL (0.2-1.3); CALCIUM 8.1 mg/dL (8.5-10.1); CARBON DIOXIDE 28.3 mmol/L (21.0-32.0); CREATININE - SERUM 1.4 mg/dL (0.6-1.3); POTASSIUM - SERUM 4.6 mmol/L (3.5-5.1); PROTEIN - SERUM 5.5 g/dL (6.4-8.2)
[2018-04-17] VITALS (22 sets, daily range): BP systolic 90–127; BP diastolic 29–40
[2018-04-17 05:19] LABS: BASOPHILS 0.4 % (0-2); EOSINOPHILS 6.7 % (0-7); HEMATOCRIT 30.8 % (42.0-54.0); HEMOGLOBIN 10.2 g/dL (13.5-17.5); IMMATURE GRANULOCYTES 0.2 % (0-5); MCH 33.8 pg (26.0-34.0); MCHC 33.1 g/dL (31.0-37.0); MEAN PLATELET VOLUME 10.8 fL (7.4-10.4); MONOCYTES 17.8 % (2-11); NEUTROPHILS 65.9 % (40-80); RBC 3.02 10x6/uL (4.20-6.10); RDW 14.8 % (11.5-14.5); WBC 5.1 10x3/uL (4.8-10.8)
[2018-04-17 05:30] LABS: PLATELET COUNT 67 10x3/uL (130-400)
[2018-04-17 05:40] LABS: CALCIUM 8.2 mg/dL (8.5-10.1); CREATININE - SERUM 1.3 mg/dL (0.6-1.3)
[2018-04-18 05:09] VITALS: BP 102/27
[2018-04-18 06:07] LABS: BASOPHILS 0.2 % (0-2); EOSINOPHILS 6.7 % (0-7); HEMOGLOBIN 9.6 g/dL (13.5-17.5); IMMATURE GRANULOCYTES 0.2 % (0-5); MCH 33.4 pg (26.0-34.0); MCHC 33.1 g/dL (31.0-37.0); MEAN PLATELET VOLUME 10.5 fL (7.4-10.4); MONOCYTES 17.2 % (2-11); NEUTROPHILS 65.7 % (40-80); PLATELET COUNT 58 10x3/uL (130-400); RBC 2.87 10x6/uL (4.20-6.10); RDW 14.5 % (11.5-14.5); WBC 4.5 10x3/uL (4.8-10.8)
[2018-04-18 06:34] LABS: ALBUMIN 2.8 g/dL (3.4-5.0); ANION GAP 8.3 mmol/L (8-16); BILIRUBIN - TOTAL 1.77 mg/dL (0.2-1.3); CALCIUM 7.9 mg/dL (8.5-10.1); CREATININE - SERUM 1.3 mg/dL (0.6-1.3); POTASSIUM - SERUM 4.3 mmol/L (3.5-5.1)
[2018-04-18 08:14] VITALS: BP 115/46
[2018-04-18 11:56] VITALS: BP 109/38
== END 2018-04-18 18:44 | disposition home health service (06) | DRG 982 ==
LOC: D.SP 10:48 → D.RAD 13:00 → D.SP 13:00 → D.MS 17:49 → D.CVICU 17:50 → D.MS 17:50 → D.SP 17:50 → D.ICU 04-15 15:52 → D.CVICU 04-15 15:53 → D.MS 04-17 16:20
PROVIDERS: Family Medicine; General Practice; Radiology Diagnostic Radiology; Specialist
PROC: 0W9930Z Drainage of Right Pleural Cavity with Drainage Device, Percutaneous Approach (ICD-10-PCS; principal; 2018-04-11 13:00)
PROC: 06183J4 Bypass Portal Vein to Hepatic Vein with Synthetic Substitute, Percutaneous Approach (ICD-10-PCS; 2018-04-15)
DX: J93.9 Pneumothorax, unspecified (principal); J90 Pleural effusion, not elsewhere classified; R18.8 Other ascites; I50.22 Chronic systolic (congestive) heart failure; K76.6 Portal hypertension; D61.818 Other pancytopenia; N17.9 Acute kidney failure, unspecified; K72.90 Hepatic failure, unspecified without coma; K74.60 Unspecified cirrhosis of liver; I25.10 Atherosclerotic heart disease of native coronary artery without angina pectoris; Z95.5 Presence of coronary angioplasty implant and graft; Z95.1 Presence of aortocoronary bypass graft; I11.0 Hypertensive heart disease with heart failure; D69.59 Other secondary thrombocytopenia; E78.00 Pure hypercholesterolemia, unspecified; F32.9 Major depressive disorder, single episode, unspecified; G47.34 Idiopathic sleep related nonobstructive alveolar hypoventilation; R21 Rash and other nonspecific skin eruption

== ENCOUNTER → 2018-04-22 13:53 | Outpatient (CLI) | payer MEDICARE, OTHER ==
[2018-04-16 18:47] VITALS: BMI 22.1
[2018-04-22 14:50] LABS: BASOPHILS 0.6 % (0-2); EOSINOPHILS 7.1 % (0-7); HEMATOCRIT 33.8 % (42.0-54.0); HEMOGLOBIN 11.2 g/dL (13.5-17.5); IMMATURE GRANULOCYTES 0.4 % (0-5); LYMPHOCYTES 24.5 % (15-50); MCH 33.3 pg (26.0-34.0); MCHC 33.1 g/dL (31.0-37.0); MCV 100.6 fL (80.0-100.0); MONOCYTES 10.5 % (2-11); NEUTROPHILS 56.9 % (40-80); RBC 3.36 10x6/uL (4.20-6.10); RDW 14.6 % (11.5-14.5); WBC 5.3 10x3/uL (4.8-10.8)
[2018-04-22 14:51] LABS: PLATELET COUNT 111 10x3/uL (130-400)
[2018-04-22 15:09] LABS: ANION GAP 14.9 mmol/L (8-16); BILIRUBIN - TOTAL 2.59 mg/dL (0.2-1.3); CALCIUM 8.6 mg/dL (8.5-10.1); CREATININE - SERUM 1.2 mg/dL (0.6-1.3); POTASSIUM - SERUM 3.9 mmol/L (3.5-5.1)
== END | disposition home or self-care (01) ==
LOC: D.RAD 04-16 11:45
PROVIDERS: Internal Medicine Pulmonary Disease
DX: K74.60 Unspecified cirrhosis of liver (principal); J93.9 Pneumothorax, unspecified

== ENCOUNTER 2018-06-08 18:44 | Emergency (ER) | payer MEDICARE ==
[~2018-06-08] VITALS: Ht 180.3 cm; Wt 68.6 kg
[2018-06-08 18:45] VITALS: Ht 180.3 cm; Wt 68.6 kg
[2018-06-08] MEDS ORDERED: ZOCOR20 MG PO (18:47)
[2018-06-08] MEDS ORDERED: MEGACE40 MG PO (18:48)
[2018-06-08 21:02] VITALS: BP 154/65
== END 2018-06-08 21:02 | disposition home or self-care (01) ==
LOC: D.ER 18:44
DX: S01.01XA Laceration without foreign body of scalp, initial encounter (principal); W18.30XA Fall on same level, unspecified, initial encounter; Y93.89 Activity, other specified; Y92.012 Bathroom of single-family (private) house as the place of occurrence of the external cause; I10 Essential (primary) hypertension

== ENCOUNTER 2018-08-07 16:13 | Inpatient (IN) | payer MEDICARE ==
[~2018-08-07] VITALS: Ht 180.3 cm; Wt 63.2 kg
[~2018-08-07 16:13] MED LIST changes: +MEGACE40 MG PO
[2018-08-07 17:02] LABS: BASOPHILS 0.2 % (0-2); EOSINOPHILS 1.5 % (0-7); HEMATOCRIT 35.3 % (42.0-54.0); HEMOGLOBIN 12.1 g/dL (13.5-17.5); LYMPHOCYTES 25.6 % (15-50); MCH 36.2 pg (26.0-34.0); MCHC 34.3 g/dL (31.0-37.0); MCV 105.7 fL (80.0-100.0); MEAN PLATELET VOLUME 10.5 fL (7.4-10.4); MONOCYTES 14.1 % (2-11); NEUTROPHILS 58.6 % (40-80); PLATELET COUNT 114 10x3/uL (130-400); RBC 3.34 10x6/uL (4.20-6.10); RDW 14.8 % (11.5-14.5); WBC 4.5 10x3/uL (4.8-10.8)
[2018-08-07 17:23] LABS: ALBUMIN 2.3 g/dL (3.4-5.0); ANION GAP 14.4 mmol/L (8-16); BILIRUBIN - TOTAL 2.49 mg/dL (0.2-1.3); CALCIUM 8.8 mg/dL (8.5-10.1); CARBON DIOXIDE 27.1 mmol/L (21.0-32.0); CREATININE - SERUM 1.6 mg/dL (0.6-1.3); POTASSIUM - SERUM 3.5 mmol/L (3.5-5.1); PROTEIN - SERUM 7.2 g/dL (6.4-8.2)
[2018-08-07 18:07] VITALS: BP 114/48; BMI 21.3
[2018-08-07] MEDS ORDERED: MIRALAX17 GM PO (19:04)
[2018-08-08 04:38] VITALS: BP 120/51
[2018-08-08 07:51] LABS: ANION GAP 11.1 mmol/L (8-16); CALCIUM 8.1 mg/dL (8.5-10.1); CARBON DIOXIDE 26.6 mmol/L (21.0-32.0); CREATININE - SERUM 1.2 mg/dL (0.6-1.3); POTASSIUM - SERUM 3.7 mmol/L (3.5-5.1)
[2018-08-08 08:00] VITALS: BP 120/43
[2018-08-08 08:06] LABS: APPEARANCE CLEAR (CLEAR); BILIRUBIN NEGATIVE (NEGATIVE); COLOR DK YELLOW (YELLOW); GLUCOSE NEGATIVE (NEGATIVE); KETONE NEGATIVE (NEGATIVE); NITRITE NEGATIVE (NEGATIVE); PROTEIN NEGATIVE (NEGATIVE); SPECIFIC GRAVITY 1.025 (1.005-1.020)
[2018-08-08 08:07] LABS: BASOPHILS 0.2 % (0-2); HEMATOCRIT 31.5 % (42.0-54.0); HEMOGLOBIN 10.6 g/dL (13.5-17.5); IMMATURE GRANULOCYTES 0.2 % (0-5); LYMPHOCYTES 32.5 % (15-50); MCH 35.8 pg (26.0-34.0); MCHC 33.7 g/dL (31.0-37.0); MCV 106.4 fL (80.0-100.0); MEAN PLATELET VOLUME 10.8 fL (7.4-10.4); MONOCYTES 15.4 % (2-11); NEUTROPHILS 49.7 % (40-80); PLATELET COUNT 99 10x3/uL (130-400); RBC 2.96 10x6/uL (4.20-6.10); RDW 14.9 % (11.5-14.5); WBC 4.5 10x3/uL (4.8-10.8)
[2018-08-08 08:21] LABS: RED CELLS - URINE 0-5 /hpf (0-5)
[2018-08-08 08:23] LABS: BACTERIA FEW /hpf (NONE SEEN); CALCIUM OXALATE CRYSTALS OCC /hpf (NONE SEEN); EPITHELIAL CELLS OCC /hpf (0-5); HYALINE CAST OCC /lpf (NONE SEEN); MUCUS >1+ /lpf (NONE SEEN); WHITE CELLS - URINE OCC /hpf (0-5)
[2018-08-08 09:10] LABS: PLATELET ESTIMATE NORMAL
[2018-08-08 12:00] VITALS: BP 96/40
[2018-08-08 13:12] VITALS: Ht 180.3 cm; Wt 63.2 kg
[2018-08-08 16:00] VITALS: BP 115/38
[2018-08-08 19:00] VITALS: BP 120/41
[2018-08-09] VITALS: BP 125/47
[2018-08-09 04:00] VITALS: BP 120/42
[2018-08-09 05:25] LABS: BASOPHILS 0.2 % (0-2); HEMATOCRIT 30.4 % (42.0-54.0); HEMOGLOBIN 10.2 g/dL (13.5-17.5); IMMATURE GRANULOCYTES 0.2 % (0-5); LYMPHOCYTES 29.4 % (15-50); MCH 35.7 pg (26.0-34.0); MCHC 33.6 g/dL (31.0-37.0); MCV 106.3 fL (80.0-100.0); MEAN PLATELET VOLUME 10.4 fL (7.4-10.4); MONOCYTES 15.6 % (2-11); NEUTROPHILS 51.6 % (40-80); PLATELET COUNT 93 10x3/uL (130-400); RBC 2.86 10x6/uL (4.20-6.10); RDW 14.8 % (11.5-14.5); WBC 4.4 10x3/uL (4.8-10.8)
[2018-08-09 05:42] LABS: INR 1.41 (0.85-1.17); PROTIME 16.7 SECONDS (11.6-15.0)
[2018-08-09 05:54] LABS: PLATELET ESTIMATE DECREASED
[2018-08-09 06:12] LABS: ALBUMIN 1.8 g/dL (3.4-5.0); ANION GAP 10.6 mmol/L (8-16); BILIRUBIN - TOTAL 1.89 mg/dL (0.2-1.3); C-REACTIVE PROTEIN 0.9 mg/dL (0.0-0.9); CALCIUM 7.6 mg/dL (8.5-10.1); CREATININE - SERUM 1.2 mg/dL (0.6-1.3); MAGNESIUM - SERUM 1.9 mg/dL (1.8-2.4); POTASSIUM - SERUM 3.6 mmol/L (3.5-5.1); PROTEIN - SERUM 5.9 g/dL (6.4-8.2)
[2018-08-09 07:57] VITALS: BP 114/58
[2018-08-09 12:00] VITALS: BP 112/38
[2018-08-10 07:07] LABS: BASOPHILS 0.5 % (0-2); EOSINOPHILS 3.5 % (0-7); HEMATOCRIT 30.8 % (42.0-54.0); HEMOGLOBIN 10.3 g/dL (13.5-17.5); IMMATURE GRANULOCYTES 0.3 % (0-5); LYMPHOCYTES 26.3 % (15-50); MCH 35.3 pg (26.0-34.0); MCHC 33.4 g/dL (31.0-37.0); MCV 105.5 fL (80.0-100.0); MEAN PLATELET VOLUME 10.4 fL (7.4-10.4); MONOCYTES 19.4 % (2-11); PLATELET COUNT 95 10x3/uL (130-400); RBC 2.92 10x6/uL (4.20-6.10); RDW 14.7 % (11.5-14.5)
[2018-08-10 07:22] LABS: ALBUMIN 1.8 g/dL (3.4-5.0); ANION GAP 10.1 mmol/L (8-16); BILIRUBIN - TOTAL 1.77 mg/dL (0.2-1.3); CALCIUM 7.8 mg/dL (8.5-10.1); CARBON DIOXIDE 27.5 mmol/L (21.0-32.0); CREATININE - SERUM 1.1 mg/dL (0.6-1.3); POTASSIUM - SERUM 3.6 mmol/L (3.5-5.1); PROTEIN - SERUM 5.9 g/dL (6.4-8.2)
[2018-08-10 08:00] VITALS: BP 112/34
[2018-08-10 08:11] LABS: PLATELET ESTIMATE DECREASED
[2018-08-10 12:00] VITALS: BP 115/43
[2018-08-10 18:34] LABS: % SATURATION 13 % (15-55); IRON 52 ug/dl (35-150); TOTAL IRON BIND CAPACITY 379 ug/dl (260-445); UNSAT IRON BIND CAPACITY 327 ug/dl (150-375)
[2018-08-10 20:39] VITALS: BP 110/36
[2018-08-11 00:35] VITALS: BP 118/39
[2018-08-11 04:46] VITALS: BP 124/42
[2018-08-11 07:48] LABS: BASOPHILS 0.5 % (0-2); EOSINOPHILS 4.3 % (0-7); HEMATOCRIT 31.8 % (42.0-54.0); HEMOGLOBIN 10.7 g/dL (13.5-17.5); IMMATURE GRANULOCYTES 0.2 % (0-5); LYMPHOCYTES 25.3 % (15-50); MCH 35.9 pg (26.0-34.0); MCHC 33.6 g/dL (31.0-37.0); MCV 106.7 fL (80.0-100.0); MEAN PLATELET VOLUME 10.5 fL (7.4-10.4); MONOCYTES 17.4 % (2-11); NEUTROPHILS 52.3 % (40-80); PLATELET COUNT 94 10x3/uL (130-400); RBC 2.98 10x6/uL (4.20-6.10); RDW 14.8 % (11.5-14.5); WBC 4.4 10x3/uL (4.8-10.8)
[2018-08-11 08:08] VITALS: BP 117/37
[2018-08-11 08:21] LABS: ALBUMIN 1.7 g/dL (3.4-5.0); ANION GAP 10.4 mmol/L (8-16); BILIRUBIN - TOTAL 1.9 mg/dL (0.2-1.3); CARBON DIOXIDE 26.5 mmol/L (21.0-32.0); CREATININE - SERUM 1.1 mg/dL (0.6-1.3); POTASSIUM - SERUM 3.9 mmol/L (3.5-5.1); PROTEIN - SERUM 5.9 g/dL (6.4-8.2)
[2018-08-11 09:08] LABS: INR 1.38 (0.85-1.17); PROTIME 16.4 SECONDS (11.6-15.0)
[2018-08-11 12:16] VITALS: BP 138/69
--- NOTE | 2018-08-11 15:09 | MORECARE ---
CASE MANAGEMENT DISCHARGE SUMMARY PATIENT: ROSENDO MESSINA UNIT: [id number] ADM DATE: 08/07/18 AGE: 83 : 35 SEX: M ROOM/BED: D.1204 AUTHOR: FERNANDO FELDER PHYSICIAN: REFERRING PHYSICIAN: JOSETTE SHAW MD DATE OF SERVICE: 08/11/18 Discharge Plan Patient Name: ROSENDO MESSINA [facility] [facility] 1935 Planned Disposition: Home Anticipated Discharge Date: Discharge Date: Expected LOS: Initial Reviewer: [email or web address] Initial Review Date: 08/07/2018 Generated: 08/11/18 4:08 pm DCPIA - Discharge Planning Initial Assessment Updated by [email or web address]: Joy Smith on 08/11/18 3:07 pm * Is the patient Alert and Oriented? Yes * How many steps to enter\exit or inside your home? RAMP * PCP DR SHAW * Pharmacy [facility] * Preadmission Environment Home with Family * ADLs Independent * Equipment Cane Shower Chair * Other Equipment STATES HE WAS TO HAVE A NEBULIZER ORDERED FROM DR SOARES'S OFFICE IN [place]UN[place] BUT HAS NOT RECEIVED. * List name and contact numbers for known caregivers / representatives who currently or will assist patient after discharge: JOSEFA SIERRA- DTR- [phone] BALDEMAR MESSINA- - [phone] * Verbal permission to speak to the caregivers and representatives has been obtained from the patient. Yes * Community resources currently utilized None * Please name any agencies selected above. N/A * Additional services required to return to the preadmission environment? No * Can the patient safely return to the preadmission environment? Yes * Has this patient been hospitalized within the prior 30 days at any hospital? No Patient Name: ROSENDO MESSINA Page 15264 at 1509 All edits/amendments must be made on the electronic document DICTATION DATE: 08/11/18 1508 TELECOMMUNICATIONS PROFESSIONAL: ESPERANZA 08/11/18 1508 RPT#: [id number] DC DATE: STATUS: ADM IN [facility] [address] [place] [address] END OF REPORT
--- NOTE | 2018-08-11 15:17 | MORECARE ---
CASE MANAGEMENT DISCHARGE SUMMARY PATIENT: ROSENDO MESSINA UNIT: [id number] ADM DATE: 08/07/18 AGE: 83 : 35 SEX: M ROOM/BED: D.1204 AUTHOR: EMERITA,DOC PHYSICIAN: REFERRING PHYSICIAN: JOSETTE SHAW MD DATE OF SERVICE: 08/11/18 Discharge Plan Patient Name: ROSENDO MESSINA Facility: [facility]:[place] : 1935 Planned Disposition: Home Anticipated Discharge Date: Discharge Date: Expected LOS: Initial Reviewer: [email or web address] Initial Review Date: 08/07/2018 Generated: 08/11/18 4:17 pm Comments DCP- Discharge Planning Updated by [email or web address]: Joy Smith on 08/11/18 2:[address] CM MET WITH THE PATIENT IS HIS ROOM. HE GAVE PERMISSION FOR CM TO SPEAK WITH HIS DAUGHTER, JOSEFA SIERRA, BEING PRESENT. PATIENT LIVES WITH HIS , BALDEMAR ARMAS. HIS DAUGHTER LIVES ACROSS THE STREET. SHE HAS BEEN PRESENT AT HIS BEDSIDE ALL DAY. THERE IS A RAMP TO ENTER HIS HOME. HE AMBULATES WITH A CANE SOMETIMES. HE IS FAIRLY INDEPENDENT IN HIS CARE. HE APPEARS A LITTLE TIRED THIS PM. IS AWAITING A ULTRASOUND STUDY. DTR STATES HE IS HAVING HIS THORACENTSIS TOMORROW. HAS NO SERVICES IN THE HOME. HAD H/H SOMETIME AGO. DTR NOR PATIENT CAN RECALL THE PROVIDER'S NAME. EXPLAINED HOME HEALTH, ACUTE REHAB AND SKILLED SERVICES. PATIENT PLANS TO RETURN TO HOME. PCP- DR SHAW [facility]. CM TO FOLLOW TO ASSIST IS APPROPRIATE. DCPIA - Discharge Planning Initial Assessment Updated by [email or web address]: Joy Smith on 08/11/18 3:07 pm * Is the patient Alert and Oriented? Yes * How many steps to enter\exit or inside your home? RAMP * PCP DR SHAW * Pharmacy [facility] [address] * Preadmission Environment Home with Family * ADLs Independent * Equipment Cane Shower Chair * Other Equipment STATES HE WAS TO HAVE A NEBULIZER ORDERED FROM DR SOARES'S OFFICE IN [place] BUT HAS NOT RECEIVED. * List name and contact numbers for known caregivers / representatives who currently or will assist patient after discharge: JOSEFA SIERRA- DTR- [phone] BALDEMAR MESSINA- - [phone] * Verbal permission to speak to the caregivers and representatives has been obtained from the patient. Yes * Community resources currently utilized None * Please name any agencies selected above. N/A * Additional services required to return to the preadmission environment? No * Can the patient safely return to the preadmission environment? Yes * Has this patient been hospitalized within the prior 30 days at any hospital? No Last DP export: 08/11/18 2:09 p Patient Name: ROSENDO MESSINA Page 78239 at 1517 All edits/amendments must be made on the electronic document DICTATION DATE: 08/11/181515 HYDRO TECHNICIAN: ESPERANZA 08/11/181515 RPT#: [id number] DC DATE: STATUS: ADM IN [facility] [address] [place] [address] END OF REPORT
[2018-08-11 17:21] VITALS: BP 113/43
[2018-08-11 20:00] VITALS: BP 108/34
[2018-08-12 01:32] VITALS: BP 108/36
[2018-08-12 04:00] VITALS: BP 108/38
[2018-08-12 07:00] LABS: HEMATOCRIT 31.2 % (42.0-54.0); HEMOGLOBIN 10.3 g/dL (13.5-17.5); MCH 35.4 pg (26.0-34.0); MCV 107.2 fL (80.0-100.0); PLATELET COUNT 93 10x3/uL (130-400); RBC 2.91 10x6/uL (4.20-6.10); RDW 14.8 % (11.5-14.5); WBC 4.4 10x3/uL (4.8-10.8)
[2018-08-12 07:07] LABS: ALBUMIN 1.7 g/dL (3.4-5.0); ANION GAP 7.4 mmol/L (8-16); BILIRUBIN - TOTAL 1.73 mg/dL (0.2-1.3); CALCIUM 8.1 mg/dL (8.5-10.1); CARBON DIOXIDE 28.3 mmol/L (21.0-32.0); CREATININE - SERUM 1.1 mg/dL (0.6-1.3); MAGNESIUM - SERUM 2.1 mg/dL (1.8-2.4); POTASSIUM - SERUM 3.7 mmol/L (3.5-5.1); PROTEIN - SERUM 5.8 g/dL (6.4-8.2)
[2018-08-12 08:18] LABS: FOLATE (FOLIC ACID) - SERUM 13.9 ng/mL (>3.0)
[2018-08-12 08:32] VITALS: BP 120/41
[2018-08-12 08:48] LABS: PLATELET ESTIMATE DECREASED
[2018-08-12 08:59] LABS: EOSINOPHILS 5 % (0-7); LYMPHOCYTES 27 % (15-50); MONOCYTES 16 % (2-11); NEUTROPHILS 52 % (40-80)
[2018-08-12 16:42] LABS: PROTEIN - BODY FLUID 2.3 G/DL
[2018-08-12 18:00] LABS: MACROPHAGES BF 45 %; NEUT - BF 2 %
[2018-08-12 20:14] VITALS: BP 118/68
[2018-08-13] VITALS (9 sets, daily range): BP systolic 114–138; BP diastolic 34–56
[2018-08-13 05:13] LABS: BASOPHILS 0.2 % (0-2); HEMATOCRIT 33.6 % (42.0-54.0); HEMOGLOBIN 11.4 g/dL (13.5-17.5); IMMATURE GRANULOCYTES 0.2 % (0-5); LYMPHOCYTES 32.5 % (15-50); MCH 36.1 pg (26.0-34.0); MCHC 33.9 g/dL (31.0-37.0); MCV 106.3 fL (80.0-100.0); MEAN PLATELET VOLUME 10.5 fL (7.4-10.4); MONOCYTES 13.5 % (2-11); NEUTROPHILS 51.6 % (40-80); PLATELET COUNT 109 10x3/uL (130-400); RBC 3.16 10x6/uL (4.20-6.10); RDW 14.5 % (11.5-14.5)
[2018-08-13 05:14] LABS: WBC 8.4 10x3/uL (4.8-10.8)
[2018-08-13 05:35] LABS: ALBUMIN 1.8 g/dL (3.4-5.0); ANION GAP 14.7 mmol/L (8-16); BILIRUBIN - TOTAL 3.1 mg/dL (0.2-1.3); CREATININE - SERUM 1.2 mg/dL (0.6-1.3); POTASSIUM - SERUM 3.7 mmol/L (3.5-5.1); PROTEIN - SERUM 6.2 g/dL (6.4-8.2)
[2018-08-13 11:26] LABS: INR 1.13 (0.85-1.17)
[2018-08-14] VITALS: BP 118/40
[2018-08-14 04:00] VITALS: BP 116/42
[2018-08-14 06:33] LABS: BASOPHILS 0.3 % (0-2); EOSINOPHILS 2.7 % (0-7); HEMATOCRIT 29.1 % (42.0-54.0); HEMOGLOBIN 9.9 g/dL (13.5-17.5); IMMATURE GRANULOCYTES 0.1 % (0-5); LYMPHOCYTES 18.2 % (15-50); MCH 36.1 pg (26.0-34.0); MCV 106.2 fL (80.0-100.0); MEAN PLATELET VOLUME 10.9 fL (7.4-10.4); MONOCYTES 17.5 % (2-11); NEUTROPHILS 61.2 % (40-80); PLATELET COUNT 90 10x3/uL (130-400); RBC 2.74 10x6/uL (4.20-6.10); RDW 14.6 % (11.5-14.5); WBC 6.7 10x3/uL (4.8-10.8)
[2018-08-14 07:00] LABS: ALBUMIN 1.5 g/dL (3.4-5.0); ALKALINE PHOSPHATASE 119 U/L (46-116); ALT (SGPT) 36 U/L (10-68); BILIRUBIN - TOTAL 2.37 mg/dL (0.2-1.3); CALC OSMOLALITY 281 mosm/kg (275-300); CALCIUM 7.9 mg/dL (8.5-10.1); CARBON DIOXIDE 24.7 mmol/L (21.0-32.0); CHLORIDE - SERUM 107 mmol/L (98-107); GLUCOSE 112 mg/dL (74-106); MAGNESIUM - SERUM 1.8 mg/dL (1.8-2.4); PHOSPHOROUS 2.8 mg/dL (2.5-4.9); POTASSIUM - SERUM 3.6 mmol/L (3.5-5.1); PROTEIN - SERUM 5.3 g/dL (6.4-8.2); SODIUM 139 mmol/L (136-145); UREA NITROGEN 21 mg/dL (7-18); eGFR NON AFRICAN AMERICAN 76 mL/min (90-120)
[2018-08-14 08:06] LABS: PLATELET ESTIMATE DECREASED
[2018-08-14 10:22] VITALS: BP 112/37
[2018-08-14 12:55] VITALS: BP 122/32
[2018-08-14 20:00] VITALS: BP 125/37
[2018-08-15 06:53] LABS: BASOPHILS 0.3 % (0-2); EOSINOPHILS 4.2 % (0-7); HEMATOCRIT 27.4 % (42.0-54.0); HEMOGLOBIN 9.4 g/dL (13.5-17.5); IMMATURE GRANULOCYTES 0.3 % (0-5); LYMPHOCYTES 20.5 % (15-50); MCH 36.2 pg (26.0-34.0); MCHC 34.3 g/dL (31.0-37.0); MCV 105.4 fL (80.0-100.0); MEAN PLATELET VOLUME 10.7 fL (7.4-10.4); MONOCYTES 16.7 % (2-11); RDW 14.5 % (11.5-14.5); WBC 5.8 10x3/uL (4.8-10.8)
[2018-08-15 07:10] LABS: ALBUMIN 1.4 g/dL (3.4-5.0); ANION GAP 9.6 mmol/L (8-16); BILIRUBIN - TOTAL 1.94 mg/dL (0.2-1.3); CALCIUM 7.6 mg/dL (8.5-10.1); CARBON DIOXIDE 26.9 mmol/L (21.0-32.0); CREATININE - SERUM 1.1 mg/dL (0.6-1.3); POTASSIUM - SERUM 3.5 mmol/L (3.5-5.1); PROTEIN - SERUM 5.1 g/dL (6.4-8.2)
[2018-08-15 07:12] LABS: PLATELET COUNT 92 10x3/uL (130-400)
[2018-08-15 08:51] VITALS: BP 102/32
[2018-08-15 11:58] VITALS: BP 105/34
[2018-08-15 17:01] VITALS: BP 120/61
[2018-08-15 20:00] VITALS: BP 114/40
[2018-08-16] VITALS: BP 112/36
[2018-08-16 04:00] VITALS: BP 117/79
[2018-08-16 06:33] LABS: BASOPHILS 0.2 % (0-2); EOSINOPHILS 4.8 % (0-7); HEMATOCRIT 26.7 % (42.0-54.0); HEMOGLOBIN 9.1 g/dL (13.5-17.5); IMMATURE GRANULOCYTES 0.4 % (0-5); MCHC 34.1 g/dL (31.0-37.0); MCV 105.5 fL (80.0-100.0); MEAN PLATELET VOLUME 10.6 fL (7.4-10.4); MONOCYTES 18.5 % (2-11); NEUTROPHILS 54.1 % (40-80); PLATELET COUNT 96 10x3/uL (130-400); RBC 2.53 10x6/uL (4.20-6.10); RDW 14.7 % (11.5-14.5); WBC 4.8 10x3/uL (4.8-10.8)
[2018-08-16 06:52] LABS: ALBUMIN 1.4 g/dL (3.4-5.0); ANION GAP 9.7 mmol/L (8-16); BILIRUBIN - TOTAL 1.93 mg/dL (0.2-1.3); CALCIUM 7.6 mg/dL (8.5-10.1); CARBON DIOXIDE 26.9 mmol/L (21.0-32.0); CREATININE - SERUM 1.2 mg/dL (0.6-1.3); MAGNESIUM - SERUM 1.8 mg/dL (1.8-2.4); PHOSPHOROUS 3.2 mg/dL (2.5-4.9); POTASSIUM - SERUM 3.6 mmol/L (3.5-5.1); PROTEIN - SERUM 5.1 g/dL (6.4-8.2)
[2018-08-16 08:38] VITALS: BP 115/33
[2018-08-16 12:37] VITALS: BP 111/37
[2018-08-16 17:29] VITALS: BP 116/41
[2018-08-16 20:00] VITALS: BP 122/45
[2018-08-17] VITALS: BP 115/44
[2018-08-17 04:00] VITALS: BP 122/44
[2018-08-17 07:03] LABS: BASOPHILS 0.2 % (0-2); EOSINOPHILS 4.5 % (0-7); HEMOGLOBIN 9.6 g/dL (13.5-17.5); IMMATURE GRANULOCYTES 0.5 % (0-5); LYMPHOCYTES 22.4 % (15-50); MCH 36.1 pg (26.0-34.0); MCHC 34.3 g/dL (31.0-37.0); MCV 105.3 fL (80.0-100.0); MEAN PLATELET VOLUME 10.6 fL (7.4-10.4); NEUTROPHILS 52.4 % (40-80); PLATELET COUNT 87 10x3/uL (130-400); RBC 2.66 10x6/uL (4.20-6.10); RDW 14.7 % (11.5-14.5); WBC 4.2 10x3/uL (4.8-10.8)
[2018-08-17 07:20] LABS: ALBUMIN 1.4 g/dL (3.4-5.0); CALCIUM 7.9 mg/dL (8.5-10.1); CARBON DIOXIDE 27.6 mmol/L (21.0-32.0); CREATININE - SERUM 1.1 mg/dL (0.6-1.3); POTASSIUM - SERUM 3.6 mmol/L (3.5-5.1); PROTEIN - SERUM 5.4 g/dL (6.4-8.2)
[2018-08-17 08:05] VITALS: BP 116/40
[2018-08-17 12:00] VITALS: BP 116/33
[2018-08-17 16:00] VITALS: BP 122/36
[2018-08-18 06:06] LABS: BASOPHILS 0.2 % (0-2); HEMATOCRIT 27.7 % (42.0-54.0); HEMOGLOBIN 9.6 g/dL (13.5-17.5); IMMATURE GRANULOCYTES 0.4 % (0-5); LYMPHOCYTES 28.5 % (15-50); MCH 36.8 pg (26.0-34.0); MCHC 34.7 g/dL (31.0-37.0); MCV 106.1 fL (80.0-100.0); MEAN PLATELET VOLUME 10.4 fL (7.4-10.4); MONOCYTES 22.2 % (2-11); NEUTROPHILS 44.7 % (40-80); PLATELET COUNT 95 10x3/uL (130-400); RBC 2.61 10x6/uL (4.20-6.10); RDW 14.9 % (11.5-14.5); WBC 4.5 10x3/uL (4.8-10.8)
[2018-08-18 06:32] LABS: ALBUMIN 1.4 g/dL (3.4-5.0); ANION GAP 9.9 mmol/L (8-16); BILIRUBIN - TOTAL 1.72 mg/dL (0.2-1.3); CARBON DIOXIDE 28.6 mmol/L (21.0-32.0); CREATININE - SERUM 1.2 mg/dL (0.6-1.3); POTASSIUM - SERUM 3.5 mmol/L (3.5-5.1); PROTEIN - SERUM 5.2 g/dL (6.4-8.2)
[2018-08-18 08:05] LABS: PLATELET ESTIMATE DECREASED
[2018-08-18 08:06] LABS: ANISOCYTOSIS OCC; HYPOCHROMASIA OCC
[2018-08-18 08:38] VITALS: BP 116/43
--- NOTE | 2018-08-18 11:07 | MORECARE ---
CASE MANAGEMENT DISCHARGE SUMMARY PATIENT: ROSENDO MESSINA UNIT: [id number] ADM DATE: 08/07/18 AGE: 83 : 35 SEX: M ROOM/BED: D.1204 AUTHOR: EMERITADOC PHYSICIAN: REFERRING PHYSICIAN: JOSETTE SHAW MD DATE OF SERVICE: 08/18/18 Discharge Plan Patient Name: ROSENDO MESSINA [facility]:[place] : 1935 Planned Disposition: Home Anticipated Discharge Date: Discharge Date: Expected LOS: Initial Reviewer: [email or web address] Initial Review Date: 08/07/2018 Generated: 08/18/18 12:07 pm Comments DCP- Discharge Planning Updated by [email or web address]: Jenae Mendoza on 08/18/18 9:[address] Patient Name: ROSENDO MESSINA Admission Status: Urgent Accout number: [id number] Admission Date: 08-07-2018 : 1935 Admission Diagnosis:SHORTNESS OF BREATH Attending: JOSETTE SHAW Current LOS: 11 Anticipated DC Date: Planned Disposition: Home Primary Insurance: MEDICARE A & B Discharge Planning Comments: CM MET WITH PATIENT AND FAMILY. HE DOES NOT WANT ANY TYPE OF INPATIENT REHAB OR SNF. HE AGREED TO BUT WANTS US TO WAIT ON TO GET HERE TO DISCUSS. SHE SHOULD BE HERE AROUND 1PM TODAY AND I WILL FOLLOW UP WITH HER AT THAT TIME. Phone Operator: Jenae Mendoza DCP- Discharge Planning Updated by [email or web address]: Joy Smith on 08/11/18 2:[address] CM MET WITH THE PATIENT IS HIS ROOM. HE GAVE PERMISSION FOR CM TO SPEAK WITH HIS DAUGHTER, JOSEFA SIERRA, BEING PRESENT. PATIENT LIVES WITH HIS , BALDEMAR ARMAS. HIS DAUGHTER LIVES ACROSS THE STREET. SHE HAS BEEN PRESENT AT HIS BEDSIDE ALL DAY. THERE IS A RAMP TO ENTER HIS HOME. HE AMBULATES WITH A CANE SOMETIMES. HE IS FAIRLY INDEPENDENT IN HIS CARE. HE APPEARS A LITTLE TIRED THIS PM. IS AWAITING A ULTRASOUND STUDY. DTR STATES HE IS HAVING HIS THORACENTSIS TOMORROW. HAS NO SERVICES IN THE HOME. HAD H/H SOMETIME AGO. DTR NOR PATIENT CAN RECALL THE PROVIDER'S NAME. EXPLAINED HOME HEALTH, ACUTE REHAB AND SKILLED SERVICES. PATIENT PLANS TO RETURN TO HOME. PCP- DR SHAW [facility]- [facility] [address] CM TO FOLLOW TO ASSIST IS APPROPRIATE. DCPIA - Discharge Planning Initial Assessment Updated by [email or web address]: Joy Smith on 08/11/18 3:07 pm * Is the patient Alert and Oriented? Yes * How many steps to enter\exit or inside your home? RAMP * PCP DR SHAW * Pharmacy [facility] [address] * Preadmission Environment Home with Family * ADLs Independent * Equipment Cane Shower Chair * Other Equipment STATES HE WAS TO HAVE A NEBULIZER ORDERED FROM DR SOARES'S OFFICE IN [place] BUT HAS NOT RECEIVED. * List name and contact numbers for known caregivers / representatives who currently or will assist patient after discharge: JOSEFA SIERRA- DTR- [phone] BALDEMAR MESSINA- - [phone] * Verbal permission to speak to the caregivers and representatives has been obtained from the patient. Yes * Community resources currently utilized None * Please name any agencies selected above. N/A * Additional services required to return to the preadmission environment? No * Can the patient safely return to the preadmission environment? Yes * Has this patient been hospitalized within the prior 30 days at any hospital? No Last DP export: 08/11/18 2:17 p Patient Name: ROSENDO MESSINA Page 36160 at 1107 All edits/amendments must be made on the electronic document DICTATION DATE: 08/18/181105 LITHOGRAPHIC PLATEMAKER: ESPERANZA 08/18/181105 RPT#: [id number] DC DATE: STATUS: ADM IN [facility] [address] [place] [address] END OF REPORT
[2018-08-18 12:30] VITALS: BP 114/42
[2018-08-18 17:03] VITALS: BP 114/44
[2018-08-18 22:01] VITALS: BP 119/42
[2018-08-19] VITALS: BP 115/45
[2018-08-19 05:59] VITALS: BP 113/42
[2018-08-19 07:07] LABS: BASOPHILS 0.4 % (0-2); EOSINOPHILS 2.8 % (0-7); HEMATOCRIT 27.9 % (42.0-54.0); HEMOGLOBIN 9.4 g/dL (13.5-17.5); IMMATURE GRANULOCYTES 0.6 % (0-5); LYMPHOCYTES 18.5 % (15-50); MCH 35.6 pg (26.0-34.0); MCHC 33.7 g/dL (31.0-37.0); MCV 105.7 fL (80.0-100.0); MEAN PLATELET VOLUME 10.1 fL (7.4-10.4); MONOCYTES 18.7 % (2-11); PLATELET COUNT 104 10x3/uL (130-400); RBC 2.64 10x6/uL (4.20-6.10); RDW 14.8 % (11.5-14.5); WBC 5.3 10x3/uL (4.8-10.8)
[2018-08-19 07:30] LABS: ALBUMIN 1.4 g/dL (3.4-5.0); ANION GAP 11.3 mmol/L (8-16); BILIRUBIN - TOTAL 1.94 mg/dL (0.2-1.3); CALCIUM 8.1 mg/dL (8.5-10.1); CARBON DIOXIDE 27.1 mmol/L (21.0-32.0); CREATININE - SERUM 1.3 mg/dL (0.6-1.3); POTASSIUM - SERUM 3.4 mmol/L (3.5-5.1); PROTEIN - SERUM 5.3 g/dL (6.4-8.2)
[2018-08-19 09:43] VITALS: BP 140/44
--- NOTE | 2018-08-19 10:55 | MORECARE ---
CASE MANAGEMENT DISCHARGE SUMMARY PATIENT: ROSENDO MESSINA UNIT: [id number] ADM DATE: 08/07/18 AGE: 83 : 35 SEX: M ROOM/BED: D.1204 AUTHOR: EMERITADOC PHYSICIAN: REFERRING PHYSICIAN: JOSETTE SHAW MD DATE OF SERVICE: 08/19/18 Discharge Plan Patient Name: ROSENDO MESSINA Facility: [facility]:[place] : 1935 Planned Disposition: Home Anticipated Discharge Date: Discharge Date: Expected LOS: Initial Reviewer: [id number] Initial Review Date: 08/07/2018 Generated: 08/19/18 11:54 am Comments DCP- Discharge Planning Updated by [email or web address]: Jenae Mendoza on 08/19/18 9:[address] Patient Name: ROSENDO MESSINA Admission Status: Urgent Accout number: [id number] Admission Date: 08-07-2018 : 1935 Admission Diagnosis:SHORTNESS OF BREATH Attending: JOESTTE SHAW Current LOS: 12 Anticipated DC Date: Planned Disposition: Home Primary Insurance: MEDICARE A & B Discharge Planning Comments: CM MET WITH FAMILY, THEY ARE INTERESTED IN HOME HOSPICE WITH [facility]. CHERIE AT [facility] CONTACTED AND IS COMING TO MEET WITH FAMILY AT ABOUT 1115 TODAY. IM SIGNED Transportation Escort: Jenae Mendoza DCP- Discharge Planning Updated by [id number]: Jenae Mendoza on 08/18/18 9:[address] Patient Name: ROSENDO MESSINA Admission Status: Urgent Accout number: [id number] Admission Date: 08-07-2018 : 1935 Admission Diagnosis:SHORTNESS OF BREATH Attending: JOSETTE SHAW Current LOS: 11 Anticipated DC Date: Planned Disposition: Home Primary Insurance: MEDICARE A & B Discharge Planning Comments: CM MET WITH PATIENT AND FAMILY. HE DOES NOT WANT ANY TYPE OF INPATIENT REHAB OR SNF. HE AGREED TO BUT WANTS US TO WAIT ON TO GET HERE TO DISCUSS. SHE SHOULD BE HERE AROUND 1PM TODAY AND I WILL FOLLOW UP WITH HER AT THAT TIME. Transportation Escort: Jenae Mendoza DCP- Discharge Planning Updated by [email or web address]: Joy Smith on 08/11/18 2:[address] CM MET WITH THE PATIENT IS HIS ROOM. HE GAVE PERMISSION FOR CM TO SPEAK WITH HIS DAUGHTER, JOSEFA SIERRA, BEING PRESENT. PATIENT LIVES WITH HIS , BALDEMAR ARMAS. HIS DAUGHTER LIVES ACROSS THE STREET. SHE HAS BEEN PRESENT AT HIS BEDSIDE ALL DAY. THERE IS A RAMP TO ENTER HIS HOME. HE AMBULATES WITH A CANE SOMETIMES. HE IS FAIRLY INDEPENDENT IN HIS CARE. HE APPEARS A LITTLE TIRED THIS PM. IS AWAITING A ULTRASOUND STUDY. DTR STATES HE IS HAVING HIS THORACENTSIS TOMORROW. HAS NO SERVICES IN THE HOME. HAD H/H SOMETIME AGO. DTR NOR PATIENT CAN RECALL THE PROVIDER'S NAME. EXPLAINED HOME HEALTH, ACUTE REHAB AND SKILLED SERVICES. PATIENT PLANS TO RETURN TO HOME. PCP- [facility] [address] CM TO FOLLOW TO ASSIST IS APPROPRIATE. DCPIA - Discharge Planning Initial Assessment Updated by [id number]: Joy Smith on 08/11/18 3:07 pm * Is the patient Alert and Oriented? Yes * How many steps to enter\exit or inside your home? RAMP * PCP DR SHAW * Pharmacy [facility] [address] * Preadmission Environment Home with Family * ADLs Independent * Equipment Cane Shower Chair * Other Equipment STATES HE WAS TO HAVE A NEBULIZER ORDERED FROM DR SOARES'S OFFICE IN JUNE BUT HAS NOT RECEIVED. * List name and contact numbers for known caregivers / representatives who currently or will assist patient after discharge: JOSEFA SIERRA- DTR- [phone] BALDEMAR LYNCHPTON- - [phone] * Verbal permission to speak to the caregivers and representatives has been obtained from the patient. Yes * Community resources currently utilized None * Please name any agencies selected above. N/A * Additional services required to return to the preadmission environment? No * Can the patient safely return to the preadmission environment? Yes * Has this patient been hospitalized within the prior 30 days at any hospital? No Coverage Notice Reviewer: [id number] Coy Mendoza Notice Issued Date-Time: 08/19/2018 10:51 Notice Type: IM Discharge Notice Notice Delivered To: Family Member Relationship to Patient: Daughter Digital Advisor Name: JOSEFA SIERRA Delivery Method: HAND - Hand Delivered Dia Days: Prior Verbal Notification: Recipient Understood Notice: Yes Recipient Signature: Yes Med Rec Note Co-signed by Attending: Coverage Notice Comment: Last DP export: 08/18/18 10:07 am Patient Name: ROSENDO MESSINA Page [id number] at 1055 All edits/amendments must be made on the electronic document DICTATION DATE: 08/19/181053 POWER TRANSFORMER REPAIRER: ESPERANZA 08/19/181053 RPT#: [id number] DC DATE: STATUS: ADM IN [facility] [address] [place] [address] END OF REPORT
[2018-08-19 11:45] VITALS: BP 135/48
--- NOTE | 2018-08-20 08:17 | MORECARE ---
CASE MANAGEMENT DISCHARGE SUMMARY PATIENT: ROSENDO MESSINA UNIT: [id number] ADM DATE: 08/07/18 AGE: 83 : 35 SEX: M ROOM/BED: D.1204 AUTHOR: FERNANDO FELDER PHYSICIAN: REFERRING PHYSICIAN: JOSETTE SHAW MD DATE OF SERVICE: 08/20/18 Discharge Plan Patient Name: ROSENDO MESSINA Facility: [facility]:[place] : 1935 Planned Disposition: Home with Hospice Anticipated Discharge Date: 08/19/18 Discharge Date: 08/19/2018 Expected LOS: 12 Initial Reviewer: [id number] Initial Review Date: 08/07/2018 Generated: 08/20/18 9:16 am Comments DCP- Discharge Planning Updated by [id number]: Jenae Mendoza on 08/19/18 9:[address] Patient Name: ROSENDO MESSINA Admission Status: Urgent Accout number: [id number] Admission Date: 08-07-2018 : 1935 Admission Diagnosis:SHORTNESS OF BREATH Attending: JOSETTE SHAW Current LOS: 12 Anticipated DC Date: Planned Disposition: Home Primary Insurance: MEDICARE A & B Discharge Planning Comments: CM MET WITH FAMILY, THEY ARE INTERESTED IN HOME HOSPICE WITH [facility]. CHERIE AT [facility] CONTACTED AND IS COMING TO MEET WITH FAMILY AT ABOUT 1115 TODAY. IM SIGNED Custom Bow Maker: Jenae Mendoza DCP- Discharge Planning Updated by [id number]: Jenae Mendoza on 08/18/18 9:[address] Patient Name: ROSENDO MESSINA Admission Status: Urgent Accout number: [id number] Admission Date: 08-07-2018 : 1935 Admission Diagnosis:SHORTNESS OF BREATH Attending: JOSETTE SHAW Current LOS: 11 Anticipated DC Date: Planned Disposition: Home Primary Insurance: MEDICARE A & B Discharge Planning Comments: CM MET WITH PATIENT AND FAMILY. HE DOES NOT WANT ANY TYPE OF INPATIENT REHAB OR SNF. HE AGREED TO BUT WANTS US TO WAIT ON TO GET HERE TO DISCUSS. SHE SHOULD BE HERE AROUND 1PM TODAY AND I WILL FOLLOW UP WITH HER AT THAT TIME. Custom Bow Maker: Jenae Mendoza DCP- Discharge Planning Updated by [id number]: Joy Smith on 08/11/18 2:[address] CM MET WITH THE PATIENT IS HIS ROOM. HE GAVE PERMISSION FOR CM TO SPEAK WITH HIS DAUGHTER, JOSEFA SIERRA, BEING PRESENT. PATIENT LIVES WITH HIS , BALDEMAR ARMAS. HIS DAUGHTER LIVES ACROSS THE STRE[address]. SHE HAS BEEN PRESENT AT HIS BEDSIDE ALL DAY. THERE IS A RAMP TO ENTER HIS HOME. HE AMBULATES WITH A CANE SOMETIMES. HE IS FAIRLY INDEPENDENT IN HIS CARE. HE APPEARS A LITTLE TIRED THIS PM. IS AWAITING A ULTRASOUND STUDY. DTR STATES HE IS HAVING HIS THORACENTSIS TOMORROW. HAS NO SERVICES IN THE HOME. HAD H/H SOMETIME AGO. DTR NOR PATIENT CAN RECALL THE PROVIDER'S NAME. EXPLAINED HOME HEALTH, ACUTE REHAB AND SKILLED SERVICES. PATIENT PLANS TO RETURN TO HOME. PCP- [facility]- [facility] [address] CM TO FOLLOW TO ASSIST IS APPROPRIATE. DCPIA - Discharge Planning Initial Assessment Updated by [id number]: Joy Smith on 08/11/18 3:07 pm * Is the patient Alert and Oriented? Yes * How many steps to enter\exit or inside your home? RAMP * PCP DR SHAW * Pharmacy [facility] [address] * Preadmission Environment Home with Family * ADLs Independent * Equipment Cane Shower Chair * Other Equipment STATES HE WAS TO HAVE A NEBULIZER ORDERED FROM DR SOARES'S OFFICE IN JUNE BUT HAS NOT RECEIVED. * List name and contact numbers for known caregivers / representatives who currently or will assist patient after discharge: JOSEFA SIERRA- DTR- [phone] BALDEMAR LYNCHPTON- - [phone] * Verbal permission to speak to the caregivers and representatives has been obtained from the patient. Yes * Community resources currently utilized None * Please name any agencies selected above. N/A * Additional services required to return to the preadmission environment? No * Can the patient safely return to the preadmission environment? Yes * Has this patient been hospitalized within the prior 30 days at any hospital? No Coverage Notice Reviewer: [id number] oCy Mendoza Notice Issued Date-Time: 08/19/2018 10:51 Notice Type: IM Discharge Notice Notice Delivered To: Family Member Relationship to Patient: Daughter Pole Maker Name: JOSEFA SIERRA Delivery Method: HAND - Hand Delivered Dia Days: Prior Verbal Notification: Recipient Understood Notice: Yes Recipient Signature: Yes Med Rec Note Co-signed by Attending: Coverage Notice Comment: Last DP export: 08/19/18 9:54 am Patient Name: ROSENDO MESSINA Page [id number] at 0817 All edits/amendments must be made on the electronic document DICTATION DATE: 08/20/18815 GANG HEMSTITCHING MACHINE OPERATOR: ESPERANZA 08/20/18815 RPT#: [id number] DC DATE:08/19/18 STATUS: DIS IN [facility] [address] [place] [address] END OF REPORT
== END 2018-08-19 17:30 | disposition home health service (06) | DRG 291 ==
LOC: D.M3 16:13
PROVIDERS: Family Medicine; Internal Medicine Nephrology; Internal Medicine Pulmonary Disease; Radiology Vascular & Interventional Radiology; ADMIT Emergency Medicine
PROC: 0W993ZZ Drainage of Right Pleural Cavity, Percutaneous Approach (ICD-10-PCS; 2018-08-12)
PROC: 0W9930Z Drainage of Right Pleural Cavity with Drainage Device, Percutaneous Approach (ICD-10-PCS; principal; 2018-08-13 12:25)
DX: I11.0 Hypertensive heart disease with heart failure (principal); I50.21 Acute systolic (congestive) heart failure; E43 Unspecified severe protein-calorie malnutrition; D61.818 Other pancytopenia; N17.9 Acute kidney failure, unspecified; K76.6 Portal hypertension; I25.10 Atherosclerotic heart disease of native coronary artery without angina pectoris; K74.60 Unspecified cirrhosis of liver; K72.90 Hepatic failure, unspecified without coma; D64.9 Anemia, unspecified; R54 Age-related physical debility; Z68.21 Body mass index [BMI] 21.0-21.9, adult; E87.6 Hypokalemia; Z66 Do not resuscitate; F32.9 Major depressive disorder, single episode, unspecified; Z95.1 Presence of aortocoronary bypass graft; Z95.5 Presence of coronary angioplasty implant and graft; Z95.0 Presence of cardiac pacemaker